=== PATIENT | male | born 1960 | race American Indian/Alaskan Native ===

== ENCOUNTER 2019-04-28 14:24 | Inpatient (IN) | payer BC ==
[2019-04-28 14:59] VITALS: BMI 25.0
--- NOTE | 2019-04-28 15:30 | C.PDOC ---
History Of Present Illness Patient is a 58 year old male who presents to the ED for evaluation of left foot ulcer after being sent in for failed outpatient therapy. Patient is reportedly on antibiotics from a podiatry outpatient. Time Seen by Provider: 04/28/19 15:27 Chief Complaint (Nursing): Abnormal Skin Integrity History Per: Patient History/Exam Limitations: no limitations Current Symptoms Are (Timing): Still Present Location Of Injury: Left: Foot (ulcer ) Recent travel outside of the [place]: No Additional History Per: Patient Past Medical History Reviewed: Historical Data, Nursing Documentation, Vital Signs Vital Signs: Last Vital Signs Temp 98.6 F 04/28/19 14:59 Pulse 71 04/28/19 14:59 Resp 16 04/28/19 14:59 BP 133/78 04/28/19 14:59 Pulse Ox 95 04/28/19 14:59 Primary Care Provider: Non [facility] Provider, - Medical History PMH: No Chronic Diseases Surgical History: No Surg Hx Family History: States: No Known Family Hx - Social History Hx Alcohol Use: Yes Hx Substance Use: No - Immunization History Hx Tetanus Toxoid Vaccination: No Hx Influenza Vaccination: No Hx Pneumococcal Vaccination: No Review Of Systems Except As Marked, All Systems Reviewed And Found Negative. Constitutional: Negative for: Fever, Chills Cardiovascular: Negative for: Chest Pain Respiratory: Negative for: Shortness of Breath Musculoskeletal: Positive for: Foot Pain (left foot ulcer) Physical Exam - Physical Exam Appears: Non-toxic, No Acute Distress Skin: Warm, Dry Head: Atraumatic, Normacephalic Oral Mucosa: Moist Neck: Normal ROM, Supple Chest: Symmetrical, No Deformity Cardiovascular: Rhythm Regular, No Murmur Respiratory: Normal Breath Sounds, No Rales, No Rhonchi, No Wheezing Extremity: Other (ulcer to first digit, purulent drainage ) Neurological/Psych: Oriented x3 ED Course And Treatment - Laboratory Results Result Diagrams: 04/28/19 16:55 04/28/19 16:55 O2 Sat by Pulse Oximetry: 95 (on RA) Pulse Ox Interpretation: Normal - Other Rad Xray Lft Foot X-Ray: Viewed By Me, Read By Radiologist Interpretation: Date of service: 04/28/2019. PROCEDURE: Left Foot Radiographs. HISTORY: foot ulcer. COMPARISON: None. TECHNIQUE: 3 views obtained. FINDINGS: BONES: Status post osteotomy in the distal 1st metatarsal and post osteotomy in the proximal phalanx of the great toe. There are metallic screws at the osteotomy site in the distal 1st metatarsal and a metallic wire in the proximal phalanx of the great toe. There are small metallic screws in the head of the 2nd and 3rd metatarsals. There are also postsurgical changes in the proximal phalanges of the 2nd and 3rd toes. Bone alignment is normal. There is an accessory ossifications center medial to the navicular. JOINTS: Severe degenerative osteoarthrosis in the 1st MTP joint. SOFT TISSUES: There is diffuse soft tissue swelling in the foot. OTHER FINDINGS: None. IMPRESSION: No radiographic evidence for osteomyelitis. Diffuse soft tissue swelling in the foot could represent cellulitis. Postsurgical changes as described above. Severe degenerative osteoarthrosis in the 1st MTP joint. Medical Decision Making Medical Decision Making: Plan: Labs Blood Culture Xray Lft Foot Cipro 400mg in 200ml IVPB Vancomycin 1gm in 200ml IVPB seen by podiatry bedside accepted dr kumari Disposition - Disposition Disposition: HOSPITALIZED Disposition Time: 17:34 Condition: STABLE Forms: [employer] (I[place]ic) - Clinical Impression Clinical Impression: Foot ulcer, Cellulitis - Scribe Statement The provider has reviewed the documentation as recorded by the Ramiroibrachael Gaines All medical record entries made by the Ramiroibrachael were at my direction and personally dictated by me. I have reviewed the chart and agree that the record accurately reflects my personal performance of the history, physical exam, medical decision making, and the department course for this patient. I have also personally directed, reviewed, and agree with the discharge instructions and disposition. Decision To Admit - Pt Status Changed To: Hospital Disposition Of: Inpatient - Admit Certification Admit to Inpatient:: After my assessment, the patient will require hospitalization for at least two midnights. This is because of the severity of symptoms shown, intensity of services needed, and/or the medical risk in this patient being treated as an outpatient. - InPatient: Physician Admission Certification: I certify that this patient requires 2 or more midnights of care for the following reason:: failed outpt - . Bed Request Type: Regular Admitting Physician: Patrick Kumari Jr. Patient Diagnosis: Foot ulcer, Cellulitis
[2019-04-28] MEDS ORDERED: Vancomycin 1 gm/NS 200 ml 1 GM/200 ML BAG IVPB STA (15:35)
[2019-04-28] MEDS ORDERED: Ciprofloxacin 400mg/200ml D5W 400 MG/200 ML BAG IVPB STA (15:35)
--- NOTE | 2019-04-28 16:08 | RAD ---
Date of service: 04/28/2019 PROCEDURE: Left Foot Radiographs. HISTORY: foot ulcer COMPARISON: None. TECHNIQUE: 3 views obtained. FINDINGS: BONES: Status post osteotomy in the distal 1st metatarsal and post osteotomy in the proximal phalanx of the great toe. There are metallic screws at the osteotomy site in the distal 1st metatarsal and a metallic wire in the proximal phalanx of the great toe. There are small metallic screws in the head of the 2nd and 3rd metatarsals. There are also postsurgical changes in the proximal phalanges of the 2nd and 3rd toes. Bone alignment is normal. There is an accessory ossifications center medial to the navicular. JOINTS: Severe degenerative osteoarthrosis in the 1st MTP joint. SOFT TISSUES: There is diffuse soft tissue swelling in the foot. OTHER FINDINGS: None. IMPRESSION: No radiographic evidence for osteomyelitis. Diffuse soft tissue swelling in the foot could represent cellulitis. Postsurgical changes as described above. Severe degenerative osteoarthrosis in the 1st MTP joint.
--- NOTE | 2019-04-28 17:05 | CP.PCM.CON ---
History of Present Illness - History of Present Illness History of Present Illness: Podiatry Consult Note- Dr. Santana 58 year old male seen and examined in the emergency room for left nonhealing wound with infection. Patient is known to Dr. Santana. Patient had a history of dislocated 2nd digit which fused and became painful. Patient also had progressively worsen bunion. Patient underwent surgical intervention of 2nd, 3rd metatarsal and bunion with screw fixations at [place] in March (~6 weeks prior). Patient reports that surgical incision to the 2nd and 3rd metatarsal healed however surgical incision to the bunionectomy did not heal. Reports that about 3 weeks ago, he dropped a hammer on top of this big toe a the location of the bunion surgical incision. He reports continued to follow up with Dr. Santana in which he continued to manage his wound. Patient reports he was given Augmentin which did not really help the wound. Wound culture was taken and showed Staph epidermis and was given Cipro to take. Patient was told to come to the ED for further workup of infection and to r/o bone infection. Patient denies nausea, fever, shortness of breath, diarrhea chest pains or chills. Patient reports no pain to the surgical incision. Reports no purulence or malodor. Reports increase warmth to the left foot. Reports has been ambulating in surgical shoe with dressing clean, dry and intact. PMH: denies PSH: left foot surgery ALL: denies FH: noncontributory SocH: denies smoking, drinking or illicit drug use Past Patient History - Past Social History Smoking Status: Never Smoked - PSYCHIATRIC Hx Substance Use: No - SURGICAL HISTORY Hx Surgeries: Yes Hx Musculoskeletal Surgery: (left foot.) - ANESTHESIA Hx Anesthesia: Yes Meds Allergies/Adverse Reactions: Allergies Allergy/AdvReac Type Severity Reaction Status Date / Time No Known Allergies Allergy Verified 04/28/19 14:58 Physical Exam - Constitutional Appears: Well, Non-toxic, No Acute Distress - Extremities Exam Extremities exam: Negative for: calf tenderness Additional comments: VASC: DP and PT 2/4 bilaterally, CFT < 3 seconds x 10 digits, temperature left warm to warm, right warm to cool, mild edema noted to the left foot ORTHO: MM is 5/5 in all four compartments, able to wiggle digits, no calf pain or tenderness, slightly weaken dorsiflexion of the hallux NEURO: gross and protective sensation intact DERM: healed surgical incision to 2nd and 3rd digit and open wound noted to the dorsum medial aspect of left foot measuring approximately 2 x 5 cm x .2 cm with wound base mixture of fibrotic and granular tissue, slight clear yellow synovial drainage, no streaking cellulitis noted, no hardware exposed, no probe to bone - Neurological Exam Neurological exam: Alert, Normal Gait - Psychiatric Exam Psychiatric exam: Normal Affect, Normal Mood Results - Vital Signs Recent Vital Signs: Last Vital Signs Temp 98.6 F 04/28/19 14:59 Pulse 71 04/28/19 14:59 Resp 16 04/28/19 14:59 BP 133/78 04/28/19 14:59 Pulse Ox 95 04/28/19 15:58 - Labs Result Diagrams: 04/28/19 16:55 04/28/19 16:55 Assessment & Plan - Assessment and Plan (Free Text) Assessment: 58 M with no PMH s/p 6 weeks left bunionectomy and 2nd and 3rd metatarsal osteotomy with internal fixation with nonhealing infected wound, r/o OM Plan: Patient seen and examined Discussed plan in detail with attending Dr. Santana X-rays reviewed F/U ESR, CRP, labs Wound culture taken of left foot wound- pending ID consulted- Dr. Abdul Patient is s/p 6 weeks surgical intervention Need to r/o OM, will discuss with Dr. Abdul on best modality to r/o OM Podiatry may bring patient to the OR pending more information for debridment of nonhealing wound vs removal of implant morning Will continue to follow patient while in house Patient may WBAT in surgical shoe
[2019-04-28 17:07] LABS: PARTIAL THROMBOPLASTIN TIME 28.5 SECONDS (21-34); PROTHROMBIN TIME 11.4 SECONDS (9.7-12.2)
[2019-04-28 17:10] LABS: BLOOD UREA NITROGEN 17 mg/dL (9-20); CALCIUM 9.4 mg/dl (8.6-10.4); GFR NON-AFRICAN AMERICAN > 60
[2019-04-28 17:12] LABS: ALB/GLOB RATIO 1.3 (1.0-2.1); ALBUMIN 4.7 g/dL (3.5-5.0); ALT/SGPT 13 U/L (21-72); AST/SGOT 52 U/L (17-59); BASO # 0.1 K/uL (0.0-0.2); EOS # 0.4 K/uL (0.0-0.7); HEMOGLOBIN 14.7 g/dL (12.0-18.0); LYMPH # 2.9 K/uL (1.0-4.3); LYMPH % 31.1 % (20.0-40.0); MEAN CELL VOLUME 74.4 fL (80.0-94.0); MEAN CORPUSCULAR HEMOGLOBIN 24.8 pg (27.0-31.0); MEAN CORPUSCULAR HGB CONC 33.3 g/dL (33.0-37.0); MEAN PLATELET VOLUME 9.7 fL (7.2-11.7); NEUT # 4.9 K/uL (1.8-7.0); NEUT % 52.9 % (50.0-75.0); NRBC % 1.3 % (0.0-2.0); RBC 5.93 Mil/uL (4.40-5.90); RED CELL DISTRIBUTION WIDTH 17.1 % (11.5-14.5); WHITE BLOOD COUNT 9.2 K/uL (4.8-10.8)
--- NOTE | 2019-04-28 17:19 | CP.PCM.HP ---
History of Present Illness - History of Present Illness History of Present Illness: PGY1 H and P for Dr. 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 As per pt and podiatry resident, patient had a history of dislocated 2nd digit which fused and became painful. Pt underwent surgical incision to the 2nd and 3rd metatarsal, which healed. But the bunionectomy incision did not heal. He reports continued to follow up with Dr. Santana in which he continued to manage his wound. Patient reports he was given Augmentin which did not really help the wound. Wound culture was taken in the office and showed Staph epidermis treated with Ciprofloxacin. Denies fever, chills, chest pain, sob, abdominal pain, numbness or tingling. Endorses pain on the left foot only when bearing weight, but has been ambulating in surgical shoe without assistive device. PMH: denies PSH: left foot surgery as above Meds: Ciprofloxacin Allx: NKDA SHx: Lives in . Single. Denies smoking history. Occasional EtOH use, daily marijuana use. Denies IV drug use or other illicit drug use. Present on Admission - Present on Admission Any Indicators Present on Admission: No Review of Systems - Review of Systems All systems: reviewed and no additional remarkable complaints except (as per HPI) Past Patient History - Past Social History Smoking Status: Never Smoked - PSYCHIATRIC Hx Substance Use: No - SURGICAL HISTORY Hx Surgeries: Yes Hx Musculoskeletal Surgery: (left foot.) - ANESTHESIA Hx Anesthesia: Yes Meds Allergies/Adverse Reactions: Allergies Allergy/AdvReac Type Severity Reaction Status Date / Time No Known Allergies Allergy Verified 04/28/19 14:58 Physical Exam - Constitutional Appears: Non-toxic, No Acute Distress - Head Exam Head Exam: ATRAUMATIC, NORMAL INSPECTION - Eye Exam Eye Exam: EOMI, Normal appearance - ENT Exam ENT Exam: Mucous Membranes Moist - Respiratory Exam Respiratory Exam: Clear to Auscultation Bilateral. absent: Decreased Breath Sounds, Rales, Rhonchi, Wheezes, Respiratory Distress, Stridor - Cardiovascular Exam Cardiovascular Exam: REGULAR RHYTHM, +S1, +S2. absent: Tachycardia, Diastolic murmur, Irregular Rhythm - GI/Abdominal Exam GI & Abdominal Exam: Normal Bowel Sounds, Soft. absent: Distended, Firm, Guarding, Rebound, Rigid, Tenderness - Extremities Exam Extremities exam: Positive for: normal capillary refill, normal inspection (left foot is covered with dressing by podiatry resident; c/d/i, nontender. no drainage noted), pedal pulses present. Negative for: calf tenderness, pedal edema, tenderness - Back Exam Back exam: NORMAL INSPECTION - Neurological Exam Neurological exam: Alert, Oriented x3 - Psychiatric Exam Psychiatric exam: Normal Affect, Normal Mood - Skin Skin Exam: Dry, Normal Color, Warm - Additional Findings Additional findings: Results - Vital Signs Recent Vital Signs: Last Vital Signs Temp 98.6 F 04/28/19 14:59 Pulse 71 04/28/19 14:59 Resp 16 04/28/19 14:59 BP 133/78 04/28/19 14:59 Pulse Ox 95 04/28/19 17:07 - Labs Result Diagrams: 04/28/19 16:55 04/28/19 16:55 Labs: Laboratory Results - last 24 hr 04/28/19 04/28/19 04/28/19 16:55 16:55 16:55 WBC 9.2 RBC 5.93 H Hgb 14.7 Hct 44.1 MCV 74.4 L MCH 24.8 L MCHC 33.3 RDW 17.1 H Plt Count 240 MPV 9.7 Neut % (Auto) 52.9 Lymph % (Auto) 31.1 [place] % (Auto) 11.0 H Eos % (Auto) 4.0 Baso % (Auto) 1.0 Neut # (Auto) 4.9 Lymph # (Auto) 2.9 [place] # (Auto) 1.0 H Eos # (Auto) 0.4 Baso # (Auto) 0.1 PT 11.4 INR 1.0 APTT 28.5 Sodium 137 Potassium 5.3 H Chloride 107 Carbon Dioxide 21 L Anion Gap 14 BUN 17 Creatinine 1.0 Est GFR ( Amer) > 60 Est GFR (Non-Af Amer) > 60 Random Glucose 93 Calcium 9.4 Total Bilirubin 1.2 AST 52 ALT 13 L Alkaline Phosphatase 49 Total Protein 8.4 H Albumin 4.7 Globulin 3.7 Albumin/Globulin Ratio 1.3 Assessment & Plan - Assessment and Plan (Free Text) Assessment: This is a 58 year old male with no significant PMH, who was sent to the ED by 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 Abdul, consulted. Podiatry Dr. Santana, consulted. Left foot XR shows no radiographic evidence of OM. Diffuse soft tissue swelling in the foot could represent cellulitis. Post surgical changes, severe degenerative osteoarthrosis in the 1st MTP joint Vancomycin 1g Q12, Ciprofloxacin 400 mg IVPB q12h F/u HgbA1c, lipid panel, Blood culture, wound culture, CRP, ESR, preop CXR and EKG PPx: No indication for GI ppx Heparin 5000 units SC q12 HHD Case discussed with Dr. Aron [place] PGY1
[2019-04-28] MEDS ORDERED: Ciprofloxacin 400mg/200ml D5W 400 MG/200 ML BAG IVPB ONE (17:22)
[2019-04-29] MEDS: Ciprofloxacin 400mg/200ml D5W 400 MG/200 ML BAG IVPB SCH ×2 (03:19→14:36)
--- NOTE | 2019-04-29 07:43 | CP.PCM.PN ---
<Toña Ndiaye - Last Filed: 04/29/19 17:09> Subjective - Date & Time of Evaluation Date of Evaluation: 04/29/19 Time of Evaluation: 07:40 - Subjective Subjective: Resident Progress Note for Dr. Sharp Patient examined at bedside. No acute events overnight. Patient reports some irritation of the left eye. States pain in foot is well controlled at this time. Denies fevers, chills, nausea, vomiting, abdominal pain, diarrhea, dysuria. Objective - Vital Signs/Intake and Output Vital Signs (last 24 hours): Temp Pulse Resp BP Pulse Ox 97.8 F 68 20 134/79 98 04/29/19 00:00 04/29/19 00:00 04/29/19 00:00 04/29/19 00:00 04/29/19 00:00 Intake and Output: 04/29/19 04/29/19 06:59 18:59 Intake Total 650 Balance 650 - Medications Medications: Current Medications Heparin Sodium (Porcine) (Heparin) 5,000 units SC Q12 THU Last Admin: 04/28/19 22:26 Dose: 5,000 units Ciprofloxacin (Cipro 400mg/200ml Dsw) 400 mg in 200 mls @ 133 mls/hr IVPB Q12H THU; Protocol Last Admin: 04/29/19 03:19 Dose: 133 mls/hr Vancomycin HCl 1,000 mg/ (Sodium Chloride) 250 mls @ 166.6 mls/hr IVPB Q12H THU; Protocol Last Admin: 04/29/19 06:07 Dose: 166.6 mls/hr Pneumococcal Polyvalent Vaccine (Pneumovax 23 Vaccine) 0.5 ml IM .ONCE ONE Stop: 04/30/19 10:01 - Labs Labs: 04/28/19 16:55 04/28/19 16:55 PT 11.4 SECONDS (9.7-12.2) 04/28/19 16:55 INR 1.0 04/28/19 16:55 APTT 28.5 SECONDS (21-34) 04/28/19 16:55 - Constitutional Appears: Non-toxic, No Acute Distress - Head Exam Head Exam: ATRAUMATIC, NORMAL INSPECTION - Eye Exam Eye Exam: EOMI Additional comments: mild injection of left eye - ENT Exam ENT Exam: Mucous Membranes Moist - Respiratory Exam Respiratory Exam: Clear to Auscultation Bilateral. absent: Wheezes, Respiratory Distress, Stridor - Cardiovascular Exam Cardiovascular Exam: REGULAR RHYTHM, +S1, +S2. absent: Tachycardia - GI/Abdominal Exam GI & Abdominal Exam: Normal Bowel Sounds, Soft. absent: Distended, Firm, Guarding - Extremities Exam Extremities exam: Positive for: normal capillary refill, pedal pulses present. 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 Diffuse soft tissue swelling in the foot could represent cellulitis. Post surgical changes, severe degenerative osteoarthrosis in the 1st MTP joint - Vancomycin 1g Q12, Ciprofloxacin 400 mg IVPB q12h - blood culture negx1 - Hgba1c 5.8 - lipid panel within normal limits - F/u wound culture, CRP, ESR PPX - No indication for GI ppx - Heparin 5000 units SC q12 Dispo: pending cultures, podiatry/ID recs Case reviewed with Dr. Aron Ndiaye PGY-1 <Patrick Sharp Jr. - Last Filed: 05/02/19 11:20> Objective - Vital Signs/Intake and Output Vital Signs (last 24 hours): Temp Pulse Resp BP Pulse Ox 98.0 F 52 L 20 124/74 96 05/02/19 08:00 05/02/19 08:00 05/02/19 08:00 05/02/19 08:00 05/02/19 08:00 Intake and Output: 05/02/19 05/02/19 06:59 18:59 Intake Total 120 Balance 120 - Medications Medications: Current Medications Acetaminophen (Tylenol 325mg Tab) 650 mg PO Q6 PRN PRN Reason: Pain, moderate (4-7) Heparin Sodium (Porcine) (Heparin) 5,000 units SC Q12 THU Last Admin: 05/01/19 09:42 Dose: 5,000 units Heparin Sodium (Porcine) (Heparin (For Dialysis)) 1,000 units IVP ONCE THU Heparin Sodium (Porcine) (Heparin (For Dialysis)) 1,000 units IV ONCE THU Piperacillin Sod/Tazobactam Sod (Zosyn 3.375 Gm Iv Premix) 3.375 gm in 50 mls @ 100 mls/hr IVPB Q6H THU; Protocol Last Admin: 05/02/19 05:28 Dose: 100 mls/hr Vancomycin/Sodium Chloride (Vancomycin 1 Gm/Ns 200 Ml) 1 gm in 200 mls @ 166.7 mls/hr IVPB Q12H THU; Protocol Stop: 05/05/19 10:01 Last Admin: 05/02/19 10:13 Dose: 166.7 mls/hr Tobramycin/Dexamethasone (Tobradex Opht Susp) 0 ml OU TID [facility] Last Admin: 05/02/19 09:35 Dose: 1 drop - Labs Labs: 05/02/19 06:47 05/02/19 06:47 PT 11.4 SECONDS (9.7-12.2) 04/28/19 16:55 INR 1.0 04/28/19 16:55 APTT 28.5 SECONDS (21-34) 04/28/19 16:55 Attending/Attestation - Attestation I have personally seen and examined this patient.: Yes I have fully participated in the care of the patient.: Yes I have reviewed all pertinent clinical information, including history, physical exam and plan: Yes Notes (Text): 05/02/19 11:20 Examined patient and reviewed residents note and plan of care. Agree with findings and plan.
--- NOTE | 2019-04-29 08:26 | CP.PCM.PN ---
Subjective - Date & Time of Evaluation Date of Evaluation: 04/29/19 Time of Evaluation: 08:18 - Subjective Subjective: Podiatry Consult Note- Dr. Santana 58 year old male seen and examined with attending Dr. Santana at bedside for left foot nonhealing wound with infection s/p 6 weeks surgery, r/o OM. Patient is seen resting comfortably in bed, in NAD, and AA0x3. Patient admits he should have told Dr. Santana earlier when he first dropped the hammertoe on the hallux valgus surgical site on his foot. He reports that he did not tell Dr. Santana until 2 weeks ago when he followed up in his office. Patient reports no pain currently. Reports stingy pain during dressing changes. Reports has been ambulating without issues to bed and bathroom. Denies nausea, fever, shortness of breath, chest pains or chills. Objective - Vital Signs/Intake and Output Vital Signs (last 24 hours): Temp Pulse Resp BP Pulse Ox 98.0 F 54 L 20 133/78 98 04/29/19 07:48 04/29/19 07:48 04/29/19 07:48 04/29/19 07:48 04/29/19 07:48 Intake and Output: 04/29/19 04/29/19 06:59 18:59 Intake Total 650 Balance 650 - Medications Medications: Current Medications Heparin Sodium (Porcine) (Heparin) 5,000 units SC Q12 THU Last Admin: 04/28/19 22:26 Dose: 5,000 units Ciprofloxacin (Cipro 400mg/200ml Dsw) 400 mg in 200 mls @ 133 mls/hr IVPB Q12H THU; Protocol Last Admin: 04/29/19 03:19 Dose: 133 mls/hr Vancomycin HCl 1,000 mg/ (Sodium Chloride) 250 mls @ 166.6 mls/hr IVPB Q12H THU; Protocol Last Admin: 04/29/19 06:07 Dose: 166.6 mls/hr Pneumococcal Polyvalent Vaccine (Pneumovax 23 Vaccine) 0.5 ml IM .ONCE ONE Stop: 04/30/19 10:01 - Labs Labs: 04/28/19 16:55 04/28/19 16:55 PT 11.4 SECONDS (9.7-12.2) 04/28/19 16:55 INR 1.0 04/28/19 16:55 APTT 28.5 SECONDS (21-34) 04/28/19 16:55 - Constitutional Appears: Well, Non-toxic, No Acute Distress - Extremities Exam Additional comments: VASC: DP and PT 2/4 bilaterally, CFT < 3 seconds x 10 digits, temperature left warm to warm, right warm to cool, mild edema noted to the left foot ORTHO: MM is 5/5 in all four compartments, able to wiggle digits, no calf pain or tenderness, slightly weaken dorsiflexion of the hallux NEURO: gross and protective sensation intact DERM: healed surgical incision to 2nd and 3rd digit and open wound noted to the dorsum medial aspect of left foot measuring approximately 2 x 5 cm x .2 cm with wound base mixture of fibrotic and granular tissue, slight clear yellow synovial drainage, no streaking cellulitis noted, no hardware exposed, no probe to bone - Neurological Exam Neurological Exam: Alert, Awake, Oriented x3 - Psychiatric Exam Psychiatric exam: Normal Affect, Normal Mood Assessment and Plan - Assessment and Plan (Free Text) Assessment: 58 M with no PMH s/p 6 weeks left bunionectomy and 2nd and 3rd metatarsal osteotomy with internal fixation with nonhealing infected wound, r/o OM Plan: Patient seen and examined Discussed plan in detail with attending Dr. Santana X-rays reviewed post surgical changes vs bony changes secondary to underlying infection F/U ESR, CRP, labs Wound culture taken of left foot wound- pending ID consulted- Dr. Abdul Patient is s/p 6 weeks surgical intervention Need to r/o OM, will discuss with Dr. Abdul on best modality to r/o OM Cleanse site with saline solution and dressed with xeroform, dsd, cling. Podiatry may bring patient to the OR pending more information for debridment of nonhealing wound vs more aggressive surgery this week Will continue to follow patient while in house Patient may WBAT in surgical shoe
[2019-04-29 08:56] LABS: HEMOGLOBIN 13.6 g/dL (12.0-18.0); MEAN CELL VOLUME 75.6 fL (80.0-94.0); MEAN CORPUSCULAR HEMOGLOBIN 24.5 pg (27.0-31.0); MEAN CORPUSCULAR HGB CONC 32.4 g/dL (33.0-37.0); MEAN PLATELET VOLUME 8.8 fL (7.2-11.7); RBC 5.56 Mil/uL (4.40-5.90)
[2019-04-29 09:10] LABS: ALB/GLOB RATIO 1.4 (1.0-2.1); ALBUMIN 3.8 g/dL (3.5-5.0); ALT/SGPT 30 U/L (21-72); AST/SGOT 26 U/L (17-59); BLOOD UREA NITROGEN 12 mg/dL (9-20); GFR NON-AFRICAN AMERICAN > 60; HDL CHOLESTEROL 70 mg/dL (30-70)
[2019-04-29 09:18] LABS: LDL CHOLESTEROL 94 mg/dL (0-129)
--- NOTE | 2019-04-29 11:18 | RAD ---
Chest x-ray two views HISTORY: Preoperative evaluation. Comparison: None. Findings: No focal infiltrate or effusion. Small nodular density at the left lung base may represent vessel on end. Heart size within normal limits. Impression: No focal infiltrate or effusion.
[2019-04-29 12:32] LABS: EOS # 0.2 K/uL (0.0-0.7); LYMPH # 2.6 K/uL (1.0-4.3); MONO # 0.6 K/uL (0.0-0.8); NEUT # 3.3 K/uL (1.8-7.0)
--- NOTE | 2019-04-29 16:52 | CP.PCM.CON ---
History of Present Illness - History of Present Illness History of Present Illness: examined on rounds non healing ulcer left great toe s/p bunion surgery hardware in place cultures sent ceretec scan to r/o om cont IV antibiotics Patient has a history of dislocated 2nd digit which fused and became painful as well as 1st digit bubion. Patient underwent surgical intervention of 2nd, 3rd metatarsal and bunion with screw fixations at [place] in March (~6 weeks prior). Patient reports that surgical incision to the 2nd and 3rd metatarsal healed however surgical incision to the bunionectomy did not heal. Reports that about 3 weeks ago, he dropped a hammer on top of this big toe a the location of the bunion surgical incision. He reports continued to follow up with Dr. Santana in which he continued to manage his wound. Patient reports he was given Augmentin which did not really help the wound. Wound culture was taken and showed Staph epidermis and was given Cipro to take. Patient was told to come to the ED for further workup of infection and to r/o bone infection. PMH: denies PSH: left foot surgery ALL: denies FH: noncontributory SocH: denies smoking, drinking or illicit drug use Review of Systems - Constitutional Constitutional: As Per HPI - EENT Eyes: absent: As Per HPI, Blind Spots, Blurred Vision, Change in Vision, Decreased Night Vision, Diplopia, Discharge, Dry Eye, Exophthalmos, Floaters, Irritation, Itchy Eyes, Loss of Peripheral Vision, Pain, Photophobia, Requires Corrective Lenses, Sees Flashes, Spots in Vision, Tunnel Vision, Other Visual Disturbances, Loss of Vision, Other Ears: absent: As Per HPI, Decreased Hearing, Ear Discharge, Ear Pain, Tinnitus, Abnormal Hearing, Disequilibrium, Dizziness, Other Nose/Mouth/Throat: absent: As Per HPI, Epistaxis, Nasal Congestion, Nasal Discharge, Nasal Obstruction, Nasal Trauma, Nose Pain, Post Nasal Drip, Sinus Pain, Sinus Pressure, Bleeding Gums, Change in Voice, Dental Pain, Dry Mouth, Dysphagia, Halitosis, Hoarsness, Lip Swelling, Mouth Lesions, Mouth Pain, Odynophagia, Sore Throat, Throat Swelling, Tongue Swelling, Facial Pain, Neck Pain, Neck Mass, Other - Cardiovascular Cardiovascular: absent: As Per HPI, Acrocyanosis, Chest Pain, Chest Pain at Rest, Chest Pain with Activity, Claudication, Diaphoresis, Dyspnea, Dyspnea on Exertion, Edema, Irregular Heart Rhythm, Pain Radiating to Arm/Neck/Jaw, Leg Edema, Leg Ulcers, Lightheadedness, Orthopnea, Palpitations, Paroxysmal Nocturnal Dyspnea, Pedal Edema, Radiating Pain, Rapid Heart Rate, Slow Heart Rate, Syncope, Other - Respiratory Respiratory: absent: As Per HPI, Cough, Dyspnea, Hemoptysis, Dyspnea on Exertion, Wheezing, Snoring, Stridor, Pain on Inspiration, Chest Congestion, Excessive Mucous Production, Change in Mucous Color, Pain with Coughing, Other - Gastrointestinal Gastrointestinal: absent: As Per HPI, Abdominal Pain, Belching, Bloating, Change in Bowel Habits, Change in Stool Character, Coffee Ground Emesis, Constipation, Cramping, Diarrhea, Dyspepsia, Dysphagia, Early Satiety, Excessive Flatus, Fecal Incontinence, Heartburn, Hematemesis, Hematochezia, Loose Stools, Melena, N ausea, Odynophagia, Temesmus, Vomiting, Other - Genitourinary Genitourinary: absent: As Per HPI, Change in Urinary Stream, Difficulty Urinating, Dysuria, Flank Pain, Hematuria, Pyuria, Nocturia, Urinary Incontinence, Urinary Frequency, Urinary Hesitance, Urinary Urgency, Voiding Freq/Small Amts, Freq UTI, Hx Renal/Bladder Calculi, Hx /Renal Surgery, Bladder Distension, Other - Musculoskeletal Musculoskeletal: As Per HPI - Integumentary Integumentary: As Per HPI, Skin Pain, Wounds - Neurological Neurological: absent: As Per HPI, Abnormal Gait, Abnormal Hearing, Abnormal Movements, Abnormal Speech, Behavioral Changes, Burning Sensations, Confusion, Convulsions, Disequilibrium, Dizziness, Numbness, Focal Weakness, Frequent Falls, Headaches, Lack of Coordination, Loss of Vision, Memory Loss, Paresthesias, Radicular Pain, Restless Legs, Sensory Deficit, Syncope, Tingling, Tremor, Vertigo, Weakness, Other Visual Disturbances, Other - Psychiatric Psychiatric: absent: As Per HPI, Abnormal Sleep Pattern, Anhedonia, Anxiety, Auditory Hallucinations, Behavioral Changes, Change in Appetite, Change in Libido, Confusion, Depression, Difficulty Concentrating, Hallucinations, Homicidal Ideation, Hopelessness, Irritability, Memory Loss, Mood Swings, Panic Attacks, Paranoia, Suicidal Ideation, Visual Hallucinations, Tactile Hallucinations, Other - Endocrine Endocrine: absent: As Per HPI, Change in Body Appearance, Change in Libido, Cold Intolorance, Deepening of Voice, Excessive Sweating, Fatigue, Flushing, Heat Intolorance, Increase in Ring/Shoe/Hat Size, Palpitations, Polydipsia, Polyphagia, Polyuria, Other - Hematologic/Lymphatic Hematologic: absent: As Per HPI, Easy Bleeding, Easy Bruising, Lymphadenopathy, Other Past Patient History - Past Medical History & Family History Past Medical History?: Yes - Past Social History Smoking Status: Never Smoked - MUSCULOSKELETAL/RHEUMATOLOGICAL Hx Falls: No - PSYCHIATRIC Hx Substance Use: No - SURGICAL HISTORY Hx Surgeries: Yes Hx Musculoskeletal Surgery: (left foot.) - ANESTHESIA Hx Anesthesia: Yes Meds Allergies/Adverse Reactions: Allergies Allergy/AdvReac Type Severity Reaction Status Date / Time No Known Allergies Allergy Verified 04/28/19 14:58 - Medications Medications: Current Medications Heparin Sodium (Porcine) (Heparin) 5,000 units SC Q12 [facility] Last Admin: 04/29/19 09:54 Dose: 5,000 units Ciprofloxacin (Cipro 400mg/200ml Dsw) 400 mg in 200 mls @ 133 mls/hr IVPB Q12H THU; Protocol Last Admin: 04/29/19 14:36 Dose: 133 mls/hr Pneumococcal Polyvalent Vaccine (Pneumovax 23 Vaccine) 0.5 ml IM .ONCE ONE Stop: 04/30/19 10:01 Physical Exam - Constitutional Appears: Non-toxic, Chronically Ill - Head Exam Head Exam: ATRAUMATIC, NORMAL INSPECTION, NORMOCEPHALIC - Eye Exam Eye Exam: EOMI, Normal appearance, PERRL Pupil Exam: NORMAL ACCOMODATION, PERRL - ENT Exam ENT Exam: Mucous Membranes Moist, Normal Exam - Neck Exam Neck exam: Positive for: Normal Inspection - Respiratory Exam Respiratory Exam: Clear to Auscultation Bilateral, NORMAL BREATHING PATTERN - Cardiovascular Exam Cardiovascular Exam: REGULAR RHYTHM - GI/Abdominal Exam GI & Abdominal Exam: Normal Bowel Sounds, Soft. absent: Tenderness - Rectal Exam Rectal Exam: Deferred - Exam Exam: NORMAL INSPECTION - Extremities Exam Extremities exam: Positive for: normal inspection - Back Exam Back exam: NORMAL INSPECTION - Neurological Exam Neurological exam: Alert, CN II-XII Intact, Normal Gait, Oriented x3, Reflexes Normal - Psychiatric Exam Psychiatric exam: Normal Affect, Normal Mood - Skin Skin Exam: Dry Additional comments: 5-6 cm serpiginous ulcer with minimal purulence on dorsum of left great toe which appears somewhat superficial Results - Vital Signs Recent Vital Signs: Last Vital Signs Temp 98.2 F 04/29/19 15:00 Pulse 58 L 04/29/19 15:00 Resp 20 04/29/19 15:00 BP 152/86 H 04/29/19 15:00 Pulse Ox 98 04/29/19 15:00 - Labs Result Diagrams: 04/29/19 08:37 04/29/19 08:37 Labs: Laboratory Results - last 24 hr 04/28/19 04/28/19 04/28/19 16:55 16:55 16:55 WBC 9.2 RBC 5.93 H Hgb 14.7 Hct 44.1 MCV 74.4 L MCH 24.8 L MCHC 33.3 RDW 17.1 H Plt Count 240 MPV 9.7 Neut % (Auto) 52.9 Lymph % (Auto) 31.1 [place] % (Auto) 11.0 H Eos % (Auto) 4.0 Baso % (Auto) 1.0 Neut # (Auto) 4.9 Lymph # (Auto) 2.9 [place] # (Auto) 1.0 H Eos # (Auto) 0.4 Baso # (Auto) 0.1 ESR PT 11.4 INR 1.0 APTT 28.5 Sodium 137 Potassium 5.3 H Chloride 107 Carbon Dioxide 21 L Anion Gap 14 BUN 17 Creatinine 1.0 Est GFR ( Amer) > 60 Est GFR (Non-Af Amer) > 60 Random Glucose 93 Hemoglobin A1c Calcium 9.4 Phosphorus Magnesium Total Bilirubin 1.2 AST 52 ALT 13 L Alkaline Phosphatase 49 C-Reactive Protein Total Protein 8.4 H Albumin 4.7 Globulin 3.7 Albumin/Globulin Ratio 1.3 Triglycerides Cholesterol LDL Cholesterol Direct HDL Cholesterol 04/29/19 04/29/19 04/29/19 08:37 08:37 08:37 WBC 7.0 RBC 5.56 Hgb 13.6 Hct 42.1 MCV 75.6 L MCH 24.5 L MCHC 32.4 L RDW 17.0 H Plt Count 287 MPV 8.8 Neut % (Auto) 49.0 L Lymph % (Auto) 39.0 [place] % (Auto) 9.0 Eos % (Auto) 3.0 Baso % (Auto) 0.0 Neut # (Auto) 3.3 Lymph # (Auto) 2.6 [place] # (Auto) 0.6 Eos # (Auto) 0.2 Baso # (Auto) 0.0 ESR 2 PT INR APTT Sodium 137 Potassium 4.1 Chloride 107 Carbon Dioxide 23 Anion Gap 11 BUN 12 Creatinine 0.9 Est GFR ( Amer) > 60 Est GFR (Non-Af Amer) > 60 Random Glucose 137 H D Hemoglobin A1c 5.8 Calcium 9.0 Phosphorus 3.3 Magnesium 2.0 Total Bilirubin 0.5 AST 26 ALT 30 Alkaline Phosphatase 55 C-Reactive Protein 5.80 Total Protein 6.5 Albumin 3.8 Globulin 2.7 Albumin/Globulin Ratio 1.4 Triglycerides 110 Cholesterol 191 LDL Cholesterol Direct 94 HDL Cholesterol 70 Assessment & Plan (1) Cellulitis Status: Acute (2) Foot ulcer Status: Acute - Assessment and Plan (Free Text) Assessment: non healing wound s/p bunionectomy in a previously healthy male r/o OM to explain delayed healing / infection recc: Ceretec scan Check cultures IV antibiotics switch to Zosyn for antipseudomonal coverage as well as anaerobic coverage cont Vanco for MRSA and MRSE
[2019-04-29 17:42] LABS: URINE BILIRUBIN NEGATIVE (NEGATIVE); URINE CLARITY Clear (Clear); URINE COLOR Straw (YELLOW); URINE GLUCOSE (UA) NORMAL (Normal); URINE LEUKOCYTE ESTERASE NEG Leu/uL (Negative); URINE PROTEIN NEGATIVE (NEGATIVE); URINE UROBILINOGEN NORMAL mg/dL (0.2-1.0)
[2019-04-29 17:58] LABS: URINE BLOOD TRACE (NEGATIVE)
[2019-04-29] MEDS: Piperacill/Tazo 3.375gm in Dex 3.375 GM/50 ML BAG IVPB SCH (23:23)
[2019-04-30] MEDS: Piperacill/Tazo 3.375gm in Dex 3.375 GM/50 ML BAG IVPB SCH ×5 (04:27→22:47)
--- NOTE | 2019-04-30 07:34 | CP.PCM.PN ---
Subjective - Date & Time of Evaluation Date of Evaluation: 04/30/19 Time of Evaluation: 07:29 - Subjective Subjective: Podiatry Progress Note- Dr. Santana 58 year old male seen and examined with attending Dr. Santana at bedside for left foot nonhealing wound with infection s/p 6 weeks surgery, r/o OM. Patient seen resting comfortably in bed, in NAD. Patient denies acute overnight events. Denies N/V/SOB/CP/Chills or F. Reports no issues with ambulating. Objective - Vital Signs/Intake and Output Vital Signs (last 24 hours): Temp Pulse Resp BP Pulse Ox 98.7 F 57 L 20 155/81 H 98 04/30/19 00:00 04/30/19 00:00 04/30/19 00:00 04/30/19 00:00 04/30/19 00:00 Intake and Output: 04/30/19 04/30/19 06:59 18:59 Intake Total 1100 Balance 1100 - Medications Medications: Current Medications Heparin Sodium (Porcine) (Heparin) 5,000 units SC Q12 [facility] Last Admin: 04/29/19 21:45 Dose: 5,000 units Piperacillin Sod/Tazobactam Sod (Zosyn 3.375 Gm Iv Premix) 3.375 gm in 50 mls @ 100 mls/hr IVPB Q6H [facility]; Protocol Last Admin: 04/30/19 04:27 Dose: 100 mls/hr Pneumococcal Polyvalent Vaccine (Pneumovax 23 Vaccine) 0.5 ml IM .ONCE ONE Stop: 04/30/19 10:01 - Labs Labs: 04/29/19 08:37 04/29/19 08:37 PT 11.4 SECONDS (9.7-12.2) 04/28/19 16:55 INR 1.0 04/28/19 16:55 APTT 28.5 SECONDS (21-34) 04/28/19 16:55 - Constitutional Appears: Well, Non-toxic, No Acute Distress - Extremities Exam Extremities Exam: absent: Calf Tenderness Additional comments: VASC: DP and PT 2/4 bilaterally, CFT < 3 seconds x 10 digits, temperature left warm to warm, right warm to cool, mild edema noted to the left foot ORTHO: MM is 5/5 in all four compartments, able to wiggle digits, no calf pain or tenderness, slightly weaken dorsiflexion of the hallux NEURO: gross and protective sensation intact DERM: healed surgical incision to 2nd and 3rd digit and open wound noted to the dorsum medial aspect of left foot measuring approximately 2 x 5 cm x .2 cm with wound base mixture of fibrotic and granular tissue, slight clear yellow synovial drainage, no streaking cellulitis noted, no hardware exposed, no probe to bone - Neurological Exam Neurological Exam: Alert, Awake, Oriented x3 - Psychiatric Exam Psychiatric exam: Normal Affect, Normal Mood Assessment and Plan - Assessment and Plan (Free Text) Assessment: 58 M with no PMH s/p 6 weeks left bunionectomy and 2nd and 3rd metatarsal osteotomy with internal fixation with nonhealing infected wound, r/o OM Plan: Patient seen and examined Discussed plan in detail with attending Dr. Santana X-rays reviewed post surgical changes vs bony changes secondary to underlying infection ESR 2 CRP 5.80 Wound culture taken of left foot wound- pending ID consulted- Dr. Abdul Patient is s/p 6 weeks surgical intervention Discussed with Dr. Abdul, [facility] scan ordered to r/o OM Cleanse site with saline solution and dressed with xeroform, dsd, cling. Podiatry may bring patient to the OR pending more information for debridment of nonhealing wound vs more aggressive surgery this week Please provide medical optimization. Thank you Will continue to follow patient while in house Patient may WBAT in surgical shoe
[2019-04-30 08:12] LABS: BASO # 0.1 K/uL (0.0-0.2); BASO % 1.7 % (0.0-2.0); EOS # 0.4 K/uL (0.0-0.7); EOS % 6.3 % (0.0-4.0); HEMOGLOBIN 14.1 g/dL (12.0-18.0); LYMPH # 2.2 K/uL (1.0-4.3); LYMPH % 35.5 % (20.0-40.0); MEAN CELL VOLUME 74.8 fL (80.0-94.0); MEAN CORPUSCULAR HEMOGLOBIN 24.8 pg (27.0-31.0); MEAN CORPUSCULAR HGB CONC 33.1 g/dL (33.0-37.0); MONO # 0.8 K/uL (0.0-0.8); MONO % 13.6 % (0.0-10.0); NEUT # 2.6 K/uL (1.8-7.0); NEUT % 42.9 % (50.0-75.0); NRBC % 0.1 % (0.0-2.0); RBC 5.69 Mil/uL (4.40-5.90); RED CELL DISTRIBUTION WIDTH 16.9 % (11.5-14.5); WHITE BLOOD COUNT 6.1 K/uL (4.8-10.8)
[2019-04-30 08:30] LABS: ALB/GLOB RATIO 1.5 (1.0-2.1); ALBUMIN 4.2 g/dL (3.5-5.0); ALT/SGPT 18 U/L (21-72); AST/SGOT 36 U/L (17-59); BLOOD UREA NITROGEN 11 mg/dL (9-20); GFR NON-AFRICAN AMERICAN > 60
--- NOTE | 2019-04-30 09:07 | CP.PCM.PN ---
<Yolanda Kyle P - Last Filed: 04/30/19 15:10> Subjective - Date & Time of Evaluation Date of Evaluation: 04/30/19 Time of Evaluation: 07:30 - Subjective Subjective: Progress note for Dr. Sharp. Patient S&E. States he feels well. Had a headache overnight that has since resolved with tylenol. Denies fever, chill, nause,a vomiting, pain. Objective - Vital Signs/Intake and Output Vital Signs (last 24 hours): Temp Pulse Resp BP Pulse Ox 97.6 F 44 L 20 149/86 98 04/30/19 08:12 04/30/19 08:12 04/30/19 08:12 04/30/19 08:12 04/30/19 08:12 Intake and Output: 04/30/19 04/30/19 06:59 18:59 Intake Total 1100 Balance 1100 - Medications Medications: Current Medications Heparin Sodium (Porcine) (Heparin) 5,000 units SC Q12 [facility] Last Admin: 04/29/19 21:45 Dose: 5,000 units Piperacillin Sod/Tazobactam Sod (Zosyn 3.375 Gm Iv Premix) 3.375 gm in 50 mls @ 100 mls/hr IVPB Q6H [facility]; Protocol Last Admin: 04/30/19 04:27 Dose: 100 mls/hr Pneumococcal Polyvalent Vaccine (Pneumovax 23 Vaccine) 0.5 ml IM .ONCE ONE Stop: 04/30/19 10:01 - Labs Labs: 04/30/19 08:02 04/30/19 08:02 PT 11.4 SECONDS (9.7-12.2) 04/28/19 16:55 INR 1.0 04/28/19 16:55 APTT 28.5 SECONDS (21-34) 04/28/19 16:55 - Constitutional Appears: Well, No Acute Distress - Head Exam Head Exam: ATRAUMATIC, NORMOCEPHALIC - Eye Exam Eye Exam: EOMI, Normal appearance - ENT Exam ENT Exam: Mucous Membranes Moist - Neck Exam Neck Exam: Full ROM, Normal Inspection - Respiratory Exam Respiratory Exam: Clear to Ausculation Bilateral, NORMAL BREATHING PATTERN. absent: Rales, Rhonchi, Wheezes - Cardiovascular Exam Cardiovascular Exam: REGULAR RHYTHM, +S1, +S2 - GI/Abdominal Exam GI & Abdominal Exam: Soft, Normal Bowel Sounds. absent: Distended, Firm, Guarding, Rigid, Tenderness - Extremities Exam Extremities Exam: Full ROM. absent: Pedal Edema, Tenderness Additional comments: L foot dressing c/d/i. Left toes normal cap refill, sensation intact, warm. - Neurological Exam Neurological Exam: Alert, Awake, Oriented x3 Neuro motor strength exam: Left Upper Extremity: 5, Right Upper Extremity: 5, Left Lower Extremity: 5, Right Lower Extremity: 5 - Psychiatric Exam Psychiatric exam: Normal Affect, Normal Mood - Skin Skin Exam: Dry, Normal Color, Warm Assessment and Plan - Assessment and Plan (Free Text) Plan: This is a 58 year old male with no significant PMH, who was sent to the ED by his pot builder due to nonhealing ulcer s/p foot surgery at [place] approximately 6 weeks ago Nonhealing ulcer left lower extremity - Left foot XR shows no radiographic evidence of OM. Diffuse soft tissue swelling in the foot could represent cellulitis. 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 Ceretic scan to R/o OM. Possible OR with podiatry pending results. Case reviewed with Dr. Aron Kyle, PGY-1 <Patrick Sharp Jr. - Last Filed: 05/02/19 11:18> Objective - Vital Signs/Intake and Output Vital Signs (last 24 hours): Temp Pulse Resp BP Pulse Ox 98.0 F 52 L 20 124/74 96 05/02/19 08:00 05/02/19 08:00 05/02/19 08:00 05/02/19 08:00 05/02/19 08:00 Intake and Output: 05/02/19 05/02/19 06:59 18:59 Intake Total 120 Balance 120 - Medications Medications: Current Medications Acetaminophen (Tylenol 325mg Tab) 650 mg PO Q6 PRN PRN Reason: Pain, moderate (4-7) Heparin Sodium (Porcine) (Heparin) 5,000 units SC Q12 [facility] Last Admin: 05/01/19 09:42 Dose: 5,000 units Heparin Sodium (Porcine) (Heparin (For Dialysis)) 1,000 units IVP ONCE [facility]U Heparin Sodium (Porcine) (Heparin (For Dialysis)) 1,000 units IV ONCE [facility]U Piperacillin Sod/Tazobactam Sod (Zosyn 3.375 Gm Iv Premix) 3.375 gm in 50 mls @ 100 mls/hr IVPB Q6H [facility]; Protocol Last Admin: 05/02/19 05:28 Dose: 100 mls/hr Vancomycin/Sodium Chloride (Vancomycin 1 Gm/Ns 200 Ml) 1 gm in 200 mls @ 166.7 mls/hr IVPB Q12H [facility]; Protocol Stop: 05/05/19 10:01 Last Admin: 05/02/19 10:13 Dose: 166.7 mls/hr Tobramycin/Dexamethasone (Tobradex Opht Susp) 0 ml OU TID [facility] Last Admin: 05/02/19 09:35 Dose: 1 drop - Labs Labs: 05/02/19 06:47 05/02/19 06:47 PT 11.4 SECONDS (9.7-12.2) 04/28/19 16:55 INR 1.0 04/28/19 16:55 APTT 28.5 SECONDS (21-34) 04/28/19 16:55 Attending/Attestation - Attestation I have personally seen and examined this patient.: Yes I have fully participated in the care of the patient.: Yes I have reviewed all pertinent clinical information, including history, physical exam and plan: Yes Notes (Text): 05/02/19 11:18 Examined patient and reviewed residents note and plan of care. Agree with findings and plan.
[2019-04-30] MEDS ORDERED: Pneumococcal 23-Valent Vaccine IM ONE (10:00)
[2019-04-30] MEDS: Vancomycin 1 gm/NS 200 ml 1 GM/200 ML BAG IVPB SCH ×2 (10:40→21:16)
--- NOTE | 2019-04-30 17:57 | CP.PCM.PN ---
Subjective - Date & Time of Evaluation Date of Evaluation: 04/30/19 Time of Evaluation: 07:00 - Subjective Subjective: c/o drainage / redness left eyr left foot wound same no fever Objective - Vital Signs/Intake and Output Vital Signs (last 24 hours): Temp Pulse Resp BP Pulse Ox 99.2 F 50 L 20 126/72 97 04/30/19 15:00 04/30/19 15:00 04/30/19 15:00 04/30/19 15:00 04/30/19 15:00 Intake and Output: 04/30/19 04/30/19 06:59 18:59 Intake Total 1100 600 Balance 1100 600 - Medications Medications: Current Medications Acetaminophen (Tylenol 325mg Tab) 650 mg PO Q6 PRN PRN Reason: Pain, moderate (4-7) Heparin Sodium (Porcine) (Heparin) 5,000 units SC Q12 [facility] Last Admin: 04/30/19 10:40 Dose: 5,000 units Heparin Sodium (Porcine) (Heparin (For Dialysis)) 1,000 units IVP ONCE [facility]U Piperacillin Sod/Tazobactam Sod (Zosyn 3.375 Gm Iv Premix) 3.375 gm in 50 mls @ 100 mls/hr IVPB Q6H [facility]; Protocol Last Admin: 04/30/19 16:55 Dose: 100 mls/hr Vancomycin/Sodium Chloride (Vancomycin 1 Gm/Ns 200 Ml) 1 gm in 200 mls @ 166.7 mls/hr IVPB Q12H [facility]; Protocol Stop: 05/05/19 10:01 Last Admin: 04/30/19 10:40 Dose: 166.7 mls/hr - Labs Labs: 04/30/19 08:02 04/30/19 08:02 PT 11.4 SECONDS (9.7-12.2) 04/28/19 16:55 INR 1.0 04/28/19 16:55 APTT 28.5 SECONDS (21-34) 04/28/19 16:55 - Constitutional Appears: Well, Non-toxic, Chronically Ill - Head Exam Head Exam: ATRAUMATIC, NORMAL INSPECTION, NORMOCEPHALIC - Eye Exam Eye Exam: Conjunctival injection, EOMI, Normal appearance, PERRL Pupil Exam: NORMAL ACCOMODATION, PERRL - ENT Exam ENT Exam: Mucous Membranes Moist, Normal Exam - Neck Exam Neck Exam: Full ROM, Normal Inspection. absent: Lymphadenopathy - Respiratory Exam Respiratory Exam: Clear to Ausculation Bilateral, NORMAL BREATHING PATTERN - Cardiovascular Exam Cardiovascular Exam: REGULAR RHYTHM, +S1, +S2. absent: Murmur - GI/Abdominal Exam GI & Abdominal Exam: Soft, Normal Bowel Sounds. absent: Tenderness - Rectal Exam Rectal Exam: Deferred - Exam Exam: NORMAL INSPECTION - Extremities Exam Extremities Exam: Full ROM, Normal Capillary Refill, Normal Inspection. absent: Joint Swelling, Pedal Edema - Back Exam Back Exam: NORMAL INSPECTION - Neurological Exam Neurological Exam: Alert, Awake, CN II-XII Intact, Oriented x3. absent: Normal Gait - Psychiatric Exam Psychiatric exam: Normal Affect, Normal Mood - Skin Skin Exam: Dry, Intact, Normal Color, Warm Additional comments: ulcer same Assessment and Plan (1) Cellulitis Status: Acute (2) Foot ulcer Status: Acute - Assessment and Plan (Free Text) Assessment: non healing ulcer left foot s/p bunion surgery left first digit MRI/Bone scan could not be done may need empiric rx prognosis guarded discussed with patient- may need empiric rx
[2019-04-30] MEDS ORDERED: HYDROCORT OP SCH (18:00)
[2019-04-30] MEDS ORDERED: POLYMYXIN OP SCH (18:00)
[2019-04-30] MEDS ORDERED: NEOMYCIN OP SCH (18:00)
[2019-04-30] MEDS ORDERED: Neomy-Polymyx-Dexameth Ophth Susp (5 ml) OU SCH (18:30)
[2019-04-30] MEDS: Tobramycin/Dexamethasone (Tobradex) Opth Sol (2.5 ml) OU SCH (21:55)
[2019-05-01] MEDS: Piperacill/Tazo 3.375gm in Dex 3.375 GM/50 ML BAG IVPB SCH ×4 (04:47→23:55)
[2019-05-01] MEDS ORDERED: Polymyxin/Trimethoprim Ophth Soln OS SCH (08:45)
--- NOTE | 2019-05-01 09:07 | CP.PCM.PN ---
<Yolanda Kyle P - Last Filed: 05/01/19 12:28> Subjective - Date & Time of Evaluation Date of Evaluation: 05/01/19 Time of Evaluation: 07:00 - Subjective Subjective: Progress note for Dr. Sharp. Patient S&E. States he feels well. Reports left eye redness and discomfort. Part one of ceretic scan unable to be done yesterday, as there was an issue with cells from blood. Will attempt again today. Denies fever, chills, nausea, vomiting, foot pain, eye discharge. Objective - Vital Signs/Intake and Output Vital Signs (last 24 hours): Temp Pulse Resp BP Pulse Ox 98.1 F 77 20 147/88 96 05/01/19 08:39 05/01/19 08:39 05/01/19 08:39 05/01/19 08:39 05/01/19 08:39 Intake and Output: 05/01/19 05/01/19 06:59 18:59 Intake Total 1200 Balance 1200 - Medications Medications: Current Medications Acetaminophen (Tylenol 325mg Tab) 650 mg PO Q6 PRN PRN Reason: Pain, moderate (4-7) Heparin Sodium (Porcine) (Heparin) 5,000 units SC Q12 THU Last Admin: 04/30/19 21:17 Dose: 5,000 units Heparin Sodium (Porcine) (Heparin (For Dialysis)) 1,000 units IVP ONCE THU Heparin Sodium (Porcine) (Heparin (For Dialysis)) 1,000 units IV ONCE THU Piperacillin Sod/Tazobactam Sod (Zosyn 3.375 Gm Iv Premix) 3.375 gm in 50 mls @ 100 mls/hr IVPB Q6H THU; Protocol Last Admin: 05/01/19 04:47 Dose: 100 mls/hr Vancomycin/Sodium Chloride (Vancomycin 1 Gm/Ns 200 Ml) 1 gm in 200 mls @ 166.7 mls/hr IVPB Q12H THU; Protocol Stop: 05/05/19 10:01 Last Admin: 04/30/19 21:16 Dose: 166.7 mls/hr Tobramycin/Dexamethasone (Tobradex Opht Susp) 0 ml OU TID THU Last Admin: 04/30/19 21:55 Dose: 1 drop - Labs Labs: 04/30/19 08:02 04/30/19 08:02 PT 11.4 SECONDS (9.7-12.2) 04/28/19 16:55 INR 1.0 04/28/19 16:55 APTT 28.5 SECONDS (21-34) 04/28/19 16:55 - Additional Findings Additional findings: - Constitutional Appears: Well, No Acute Distress - Head Exam Head Exam: ATRAUMATIC, NORMOCEPHALIC - Eye Exam Eye Exam: EOMI, mild conjuctival injection on the L - ENT Exam ENT Exam: Mucous Membranes Moist - Neck Exam Neck Exam: Full ROM, Normal Inspection - Respiratory Exam Respiratory Exam: Clear to Ausculation Bilateral, NORMAL BREATHING PATTERN. absent: Rales, Rhonchi, Wheezes - Cardiovascular Exam Cardiovascular Exam: REGULAR RHYTHM, +S1, +S2 - GI/Abdominal Exam GI & Abdominal Exam: Soft, Normal Bowel Sounds. absent: Distended, Firm, Guarding, Rigid, Tenderness - Extremities Exam Extremities Exam: Full ROM. absent: Pedal Edema, Tenderness Additional comments: L foot dressing c/d/i. Left toes normal cap refill, sensation intact, warm. - Neurological Exam Neurological Exam: Alert, Awake, Oriented x3 Neuro motor strength exam: Left Upper Extremity: 5, Right Upper Extremity: 5, Left Lower Extremity: 5, Right Lower Extremity: 5 - Psychiatric Exam Psychiatric exam: Normal Affect, Normal Mood - Skin Skin Exam: Dry, Normal Color, Warm Assessment and Plan - Assessment and Plan (Free Text) Plan: This is a 58 year old male with no significant PMH, who was sent to the ED by his washer cutter due to nonhealing ulcer s/p foot surgery at [place] approximately 6 weeks ago Nonhealing ulcer left lower extremity - Left foot XR shows no radiographic evidence of OM. Diffuse soft tissue swelling in the foot could represent cellulitis. 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 F/u Vanco trough at 20:30 . Ceretic scan to be attempted today again. To be taken to OR by podiatry for wound debridement. Revised cardiac risk index Class 1: 3.9% 30 day risk of , [place] or cardiac a rrest. Patient is low risk for cardiac event under anesthesia. Patient is medically optimized for surgery. Surgical team and anesthesia team to discuss risks and benefits of surgery. Case reviewed with Dr. Aron Kyle, PGY-1 <Patrick Sharp Jr. - Last Filed: 05/02/19 11:17> Objective - Vital Signs/Intake and Output Vital Signs (last 24 hours): Temp Pulse Resp BP Pulse Ox 98.0 F 52 L 20 124/74 96 05/02/19 08:00 05/02/19 08:00 05/02/19 08:00 05/02/19 08:00 05/02/19 08:00 Intake and Output: 05/02/19 05/02/19 06:59 18:59 Intake Total 120 Balance 120 - Medications Medications: Current Medications Acetaminophen (Tylenol 325mg Tab) 650 mg PO Q6 PRN PRN Reason: Pain, moderate (4-7) Heparin Sodium (Porcine) (Heparin) 5,000 units SC Q12 THU Last Admin: 05/01/19 09:42 Dose: 5,000 units Heparin Sodium (Porcine) (Heparin (For Dialysis)) 1,000 units IVP ONCE THU Heparin Sodium (Porcine) (Heparin (For Dialysis)) 1,000 units IV ONCE THU Piperacillin Sod/Tazobactam Sod (Zosyn 3.375 Gm Iv Premix) 3.375 gm in 50 mls @ 100 mls/hr IVPB Q6H THU; Protocol Last Admin: 05/02/19 05:28 Dose: 100 mls/hr Vancomycin/Sodium Chloride (Vancomycin 1 Gm/Ns 200 Ml) 1 gm in 200 mls @ 166.7 mls/hr IVPB Q12H THU; Protocol Stop: 05/05/19 10:01 Last Admin: 05/02/19 10:13 Dose: 166.7 mls/hr Tobramycin/Dexamethasone (Tobradex Opht Susp) 0 ml OU TID THU Last Admin: 05/02/19 09:35 Dose: 1 drop - Labs Labs: 05/02/19 06:47 05/02/19 06:47 PT 11.4 SECONDS (9.7-12.2) 04/28/19 16:55 INR 1.0 04/28/19 16:55 APTT 28.5 SECONDS (21-34) 04/28/19 16:55 Attending/Attestation - Attestation I have personally seen and examined this patient.: Yes I have fully participated in the care of the patient.: Yes I have reviewed all pertinent clinical information, including history, physical exam and plan: Yes Notes (Text): 05/02/19 11:17 Examined patient and reviewed residents note and plan of care. Agree with elsie slade and plan.
[2019-05-01] MEDS: Tobramycin/Dexamethasone (Tobradex) Opth Sol (2.5 ml) OU SCH ×3 (09:43→17:21)
[2019-05-01] MEDS: Vancomycin 1 gm/NS 200 ml 1 GM/200 ML BAG IVPB SCH ×2 (09:48→22:47)
[2019-05-01 10:55] LABS: HEMOGLOBIN 14.2 g/dL (12.0-18.0); MEAN CELL VOLUME 74.3 fL (80.0-94.0); MEAN CORPUSCULAR HGB CONC 33.7 g/dL (33.0-37.0); MEAN PLATELET VOLUME 8.4 fL (7.2-11.7); RBC 5.69 Mil/uL (4.40-5.90); RED CELL DISTRIBUTION WIDTH 16.5 % (11.5-14.5); WHITE BLOOD COUNT 7.9 K/uL (4.8-10.8)
[2019-05-01 11:10] LABS: ALB/GLOB RATIO 1.4 (1.0-2.1); ALBUMIN 4.2 g/dL (3.5-5.0); ALT/SGPT 23 U/L (21-72); AST/SGOT 20 U/L (17-59); BLOOD UREA NITROGEN 13 mg/dL (9-20); CALCIUM 9.5 mg/dl (8.6-10.4); GFR NON-AFRICAN AMERICAN > 60
--- NOTE | 2019-05-01 12:10 | CP.PCM.PN ---
Subjective - Date & Time of Evaluation Date of Evaluation: 05/01/19 Time of Evaluation: 07:00 - Subjective Subjective: Podiatry Progress Note- Dr. Santana 58 year old male seen and examined with attending Dr. Santana at bedside for left foot nonhealing wound with infection s/p 6 weeks surgery, r/o OM. Patient seen resting comfortably in bed, in NAD. Patient denies acute overnight events. Denies N/V/SOB/CP/Chills or F. Reports no issues with ambulating. Patient could not get the ceretec performed yesterday. Will try again today. Objective - Vital Signs/Intake and Output Vital Signs (last 24 hours): Temp Pulse Resp BP Pulse Ox 98.1 F 77 20 147/88 96 05/01/19 08:39 05/01/19 08:39 05/01/19 08:39 05/01/19 08:39 05/01/19 08:39 Intake and Output: 05/01/19 05/01/19 06:59 18:59 Intake Total 1200 Balance 1200 - Medications Medications: Current Medications Acetaminophen (Tylenol 325mg Tab) 650 mg PO Q6 PRN PRN Reason: Pain, moderate (4-7) Heparin Sodium (Porcine) (Heparin) 5,000 units SC Q12 THU Last Admin: 05/01/19 09:42 Dose: 5,000 units Heparin Sodium (Porcine) (Heparin (For Dialysis)) 1,000 units IVP ONCE HTU Heparin Sodium (Porcine) (Heparin (For Dialysis)) 1,000 units IV ONCE THU Piperacillin Sod/Tazobactam Sod (Zosyn 3.375 Gm Iv Premix) 3.375 gm in 50 mls @ 100 mls/hr IVPB Q6H THU; Protocol Last Admin: 05/01/19 10:27 Dose: 100 mls/hr Vancomycin/Sodium Chloride (Vancomycin 1 Gm/Ns 200 Ml) 1 gm in 200 mls @ 166.7 mls/hr IVPB Q12H THU; Protocol Stop: 05/05/19 10:01 Last Admin: 05/01/19 09:48 Dose: 166.7 mls/hr Tobramycin/Dexamethasone (Tobradex Opht Susp) 0 ml OU TID THU Last Admin: 05/01/19 09:43 Dose: 1 drop - Labs Labs: 05/01/19 10:44 05/01/19 10:44 PT 11.4 SECONDS (9.7-12.2) 04/28/19 16:55 INR 1.0 04/28/19 16:55 APTT 28.5 SECONDS (21-34) 04/28/19 16:55 - Constitutional Appears: Well, Non-toxic, No Acute Distress - Extremities Exam Extremities Exam: absent: Calf Tenderness Additional comments: VASC: DP and PT 2/4 bilaterally, CFT < 3 seconds x 10 digits, temperature left warm to warm, right warm to cool, mild edema noted to the left foot ORTHO: MM is 5/5 in all four compartments, able to wiggle digits, no calf pain or tenderness, slightly weaken dorsiflexion of the hallux NEURO: gross and protective sensation intact DERM: healed surgical incision to 2nd and 3rd digit and open wound noted to the dorsum medial aspect of left foot measuring approximately 2 x 5 cm x .2 cm with wound base mixture of fibrotic and granular tissue, slight clear yellow synovial drainage, no streaking cellulitis noted, no hardware exposed, no probe to bone - Neurological Exam Neurological Exam: Alert, Awake, Oriented x3 - Psychiatric Exam Psychiatric exam: Normal Affect, Normal Mood Assessment and Plan - Assessment and Plan (Free Text) Assessment: 58 M with no PMH s/p 6 weeks left bunionectomy and 2nd and 3rd metatarsal osteotomy with internal fixation with nonhealing infected wound, r/o OM Plan: Patient seen and examined Discussed plan in detail with attending Dr. Santana X-rays reviewed post surgical changes vs bony changes secondary to underlying infection read by me ESR 2 CRP 5.80 Wound culture left foot coagulase Neg Staphylococcus 04/28/19 ID consulted- Dr. Abdul Discussed with Dr. Abdul Ceretec scan ordered to r/o OM Please attempt Ceretec scan again, thank you Cleanse site with saline solution and dressed with xeroform, dsd, cling. Patient to go to the OR this weekend for debridement and application of graft vs wound VAC May need more aggressive surgery pending ceretec scan Please provide medical optimization for OR this weekend Thank you Will continue to follow patient while in house Patient may WBAT in surgical shoe
--- NOTE | 2019-05-01 12:33 | CP.PCM.PN ---
Subjective - Date & Time of Evaluation Date of Evaluation: 05/01/19 Time of Evaluation: 08:00 - Subjective Subjective: awaiting ceretec scan 'afebrile nad Objective - Vital Signs/Intake and Output Vital Signs (last 24 hours): Temp Pulse Resp BP Pulse Ox 98.1 F 77 20 147/88 96 05/01/19 08:39 05/01/19 08:39 05/01/19 08:39 05/01/19 08:39 05/01/19 08:39 Intake and Output: 05/01/19 05/01/19 06:59 18:59 Intake Total 1200 Balance 1200 - Medications Medications: Current Medications Acetaminophen (Tylenol 325mg Tab) 650 mg PO Q6 PRN PRN Reason: Pain, moderate (4-7) Heparin Sodium (Porcine) (Heparin) 5,000 units SC Q12 THU Last Admin: 05/01/19 09:42 Dose: 5,000 units Heparin Sodium (Porcine) (Heparin (For Dialysis)) 1,000 units IVP ONCE THU Heparin Sodium (Porcine) (Heparin (For Dialysis)) 1,000 units IV ONCE THU Piperacillin Sod/Tazobactam Sod (Zosyn 3.375 Gm Iv Premix) 3.375 gm in 50 mls @ 100 mls/hr IVPB Q6H THU; Protocol Last Admin: 05/01/19 10:27 Dose: 100 mls/hr Vancomycin/Sodium Chloride (Vancomycin 1 Gm/Ns 200 Ml) 1 gm in 200 mls @ 166.7 mls/hr IVPB Q12H THU; Protocol Stop: 05/05/19 10:01 Last Admin: 05/01/19 09:48 Dose: 166.7 mls/hr Tobramycin/Dexamethasone (Tobradex Opht Susp) 0 ml OU TID THU Last Admin: 05/01/19 09:43 Dose: 1 drop - Labs Labs: 05/01/19 10:44 05/01/19 10:44 PT 11.4 SECONDS (9.7-12.2) 04/28/19 16:55 INR 1.0 04/28/19 16:55 APTT 28.5 SECONDS (21-34) 04/28/19 16:55 - Constitutional Appears: Well - Head Exam Head Exam: ATRAUMATIC, NORMAL INSPECTION, NORMOCEPHALIC - Eye Exam Eye Exam: EOMI, Normal appearance, PERRL Pupil Exam: NORMAL ACCOMODATION, PERRL - ENT Exam ENT Exam: Mucous Membranes Moist, Normal Exam - Neck Exam Neck Exam: Full ROM, Normal Inspection. absent: Lymphadenopathy - Respiratory Exam Respiratory Exam: Clear to Ausculation Bilateral, NORMAL BREATHING PATTERN - Cardiovascular Exam Cardiovascular Exam: REGULAR RHYTHM, +S1, +S2. absent: Murmur - GI/Abdominal Exam GI & Abdominal Exam: Soft, Normal Bowel Sounds. absent: Tenderness - Rectal Exam Rectal Exam: Deferred - Exam External exam: Ecchymosis, Erythema, Lacerations, Lesions, NORMAL EXTERNAL EXAM, Swelling Speculum exam: Cervical Discharge, Erythema, Foreign Body, Laceration, NORMAL SPECULUM EXAM, Tissue, Vaginal Bleeding, Vaginal Discharge - Extremities Exam Extremities Exam: Full ROM, Normal Capillary Refill, Normal Inspection. absent: Joint Swelling, Pedal Edema - Back Exam Back Exam: NORMAL INSPECTION - Neurological Exam Neurological Exam: Alert, Awake, CN II-XII Intact, Normal Gait, Oriented x3 - Psychiatric Exam Psychiatric exam: Normal Affect, Normal Mood - Skin Skin Exam: Dry, Intact, Warm Additional comments: ulcer is dry no pus Assessment and Plan (1) Cellulitis Status: Acute (2) Foot ulcer Status: Acute - Assessment and Plan (Free Text) Assessment: for skin graft cont iv rx and wound care
[2019-05-01 13:58] LABS: BASO # 0.1 K/uL (0.0-0.2); EOS # 0.4 K/uL (0.0-0.7); LYMPH # 3.4 K/uL (1.0-4.3); MONO # 1.4 K/uL (0.0-0.8); NEUT # 2.7 K/uL (1.8-7.0)
[2019-05-02] MEDS: Piperacill/Tazo 3.375gm in Dex 3.375 GM/50 ML BAG IVPB SCH ×4 (05:28→23:29)
[2019-05-02 07:11] LABS: BASO # 0.1 K/uL (0.0-0.2); BASO % 0.7 % (0.0-2.0); EOS # 0.3 K/uL (0.0-0.7); EOS % 4.3 % (0.0-4.0); HEMOGLOBIN 14.1 g/dL (12.0-18.0); LYMPH % 43.1 % (20.0-40.0); MEAN CELL VOLUME 74.9 fL (80.0-94.0); MEAN CORPUSCULAR HEMOGLOBIN 24.6 pg (27.0-31.0); MEAN CORPUSCULAR HGB CONC 32.8 g/dL (33.0-37.0); MEAN PLATELET VOLUME 8.9 fL (7.2-11.7); MONO # 0.9 K/uL (0.0-0.8); MONO % 13.1 % (0.0-10.0); NEUT # 2.7 K/uL (1.8-7.0); NEUT % 38.8 % (50.0-75.0); NRBC % 0.2 % (0.0-2.0); RBC 5.72 Mil/uL (4.40-5.90); RED CELL DISTRIBUTION WIDTH 16.7 % (11.5-14.5); WHITE BLOOD COUNT 6.9 K/uL (4.8-10.8)
[2019-05-02 07:16] LABS: ALB/GLOB RATIO 1.4 (1.0-2.1); ALBUMIN 4.2 g/dL (3.5-5.0); ALT/SGPT 28 U/L (21-72); AST/SGOT 19 U/L (17-59); BLOOD UREA NITROGEN 14 mg/dL (9-20); CALCIUM 9.5 mg/dl (8.6-10.4); GFR NON-AFRICAN AMERICAN > 60
--- NOTE | 2019-05-02 08:41 | CP.PCM.PN ---
Subjective - Date & Time of Evaluation Date of Evaluation: 05/02/19 Time of Evaluation: 08:40 - Subjective Subjective: PGY1 medicine progress note for Dr. Sharp Patient S&E. Pt understands that he will be going to OR for debridement of his wound today. Pt denies fever, chills, chest pain, sob, abdominla pain, n/v/d, acute left foot pain, headache, dizziness, lightheadedness, visual changes. Objective - Vital Signs/Intake and Output Vital Signs (last 24 hours): Temp Pulse Resp BP Pulse Ox 98.0 F 52 L 20 124/74 96 05/02/19 08:00 05/02/19 08:00 05/02/19 08:00 05/02/19 08:00 05/02/19 08:00 Intake and Output: 05/02/19 05/02/19 06:59 18:59 Intake Total 120 Balance 120 - Medications Medications: Current Medications Acetaminophen (Tylenol 325mg Tab) 650 mg PO Q6 PRN PRN Reason: Pain, moderate (4-7) Heparin Sodium (Porcine) (Heparin) 5,000 units SC Q12 THU Last Admin: 05/01/19 09:42 Dose: 5,000 units Heparin Sodium (Porcine) (Heparin (For Dialysis)) 1,000 units IVP ONCE THU Heparin Sodium (Porcine) (Heparin (For Dialysis)) 1,000 units IV ONCE THU Piperacillin Sod/Tazobactam Sod (Zosyn 3.375 Gm Iv Premix) 3.375 gm in 50 mls @ 100 mls/hr IVPB Q6H THU; Protocol Last Admin: 05/02/19 05:28 Dose: 100 mls/hr Vancomycin/Sodium Chloride (Vancomycin 1 Gm/Ns 200 Ml) 1 gm in 200 mls @ 166.7 mls/hr IVPB Q12H THU; Protocol Stop: 05/05/19 10:01 Last Admin: 05/01/19 22:47 Dose: 166.7 mls/hr Tobramycin/Dexamethasone (Tobradex Opht Susp) 0 ml OU TID THU Last Admin: 05/01/19 17:21 Dose: 1 drop - Labs Labs: 05/02/19 06:47 05/02/19 06:47 PT 11.4 SECONDS (9.7-12.2) 04/28/19 16:55 INR 1.0 04/28/19 16:55 APTT 28.5 SECONDS (21-34) 04/28/19 16:55 - Additional Findings Additional findings: - Constitutional Appears: Well, No Acute Distress - Head Exam Head Exam: ATRAUMATIC, NORMOCEPHALIC - Eye Exam Eye Exam: EOMI - ENT Exam ENT Exam: Mucous Membranes Moist - Neck Exam Neck Exam: Full ROM, Normal Inspection - Respiratory Exam Respiratory Exam: Clear to Ausculation Bilateral, NORMAL BREATHING PATTERN. absent: Rales, Rhonchi, Wheezes - Cardiovascular Exam Cardiovascular Exam: REGULAR RHYTHM, +S1, +S2 - GI/Abdominal Exam GI & Abdominal Exam: Soft, Normal Bowel Sounds. absent: Distended, Firm, Guarding, Rigid, Tenderness - Extremities Exam Extremities Exam: Full ROM. absent: Pedal Edema, Tenderness Additional comments: L foot dressing c/d/i. Left toes normal cap refill, sensation intact, warm. 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 Diffuse soft tissue swelling in the foot could represent cellulitis. 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 Ceretic scan completed. To be taken to OR by podiatry for wound debridement today. Revised cardiac risk index Class 1: 3.9% 30 day risk of , [place] or cardiac arrest. Patient is low risk for cardiac event under anesthesia. Patient is medically optimized for surgery. Surgical team and anesthesia team to discuss risks and benefits of surgery. Further management as per Dr. Aron North PGY1
[2019-05-02] MEDS: Tobramycin/Dexamethasone (Tobradex) Opth Sol (2.5 ml) OU SCH ×3 (09:35→17:12)
[2019-05-02] MEDS: Vancomycin 1 gm/NS 200 ml 1 GM/200 ML BAG IVPB SCH ×2 (10:13→21:21)
--- NOTE | 2019-05-02 10:15 | CP.PCM.PN ---
Subjective - Date & Time of Evaluation Date of Evaluation: 05/02/19 Time of Evaluation: 09:00 - Subjective Subjective: Podiatry Progress Note- Dr. Santana 58 year old male seen and examined for left foot nonhealing wound with infection s/p 6 weeks surgery, r/o OM. Patient seen resting comfortably in bed, in NAD. Patient denies acute overnight events. Denies N/V/SOB/CP/Chills or F. Patient understands that he will be going to the OR today at 12pm with Dr. Santana for wound debridement with possible application of graft/wound VAC and bone biopsy. Patient reports no pain to lower extremity. NPO status confirmed. Dressing clean dry and intact. Objective - Vital Signs/Intake and Output Vital Signs (last 24 hours): Temp Pulse Resp BP Pulse Ox 98.0 F 52 L 20 124/74 96 05/02/19 08:00 05/02/19 08:00 05/02/19 08:00 05/02/19 08:00 05/02/19 08:00 Intake and Output: 05/02/19 05/02/19 06:59 18:59 Intake Total 120 Balance 120 - Medications Medications: Current Medications Acetaminophen (Tylenol 325mg Tab) 650 mg PO Q6 PRN PRN Reason: Pain, moderate (4-7) Heparin Sodium (Porcine) (Heparin) 5,000 units SC Q12 THU Last Admin: 05/01/19 09:42 Dose: 5,000 units Heparin Sodium (Porcine) (Heparin (For Dialysis)) 1,000 units IVP ONCE THU Heparin Sodium (Porcine) (Heparin (For Dialysis)) 1,000 units IV ONCE THU Piperacillin Sod/Tazobactam Sod (Zosyn 3.375 Gm Iv Premix) 3.375 gm in 50 mls @ 100 mls/hr IVPB Q6H THU; Protocol Last Admin: 05/02/19 05:28 Dose: 100 mls/hr Vancomycin/Sodium Chloride (Vancomycin 1 Gm/Ns 200 Ml) 1 gm in 200 mls @ 166.7 mls/hr IVPB Q12H THU; Protocol Stop: 05/05/19 10:01 Last Admin: 05/01/19 22:47 Dose: 166.7 mls/hr Tobramycin/Dexamethasone (Tobradex Opht Susp) 0 ml OU TID THU Last Admin: 05/02/19 09:35 Dose: 1 drop - Labs Labs: 05/02/19 06:47 05/02/19 06:47 PT 11.4 SECONDS (9.7-12.2) 04/28/19 16:55 INR 1.0 04/28/19 16:55 APTT 28.5 SECONDS (21-34) 04/28/19 16:55 - Constitutional Appears: Well, Non-toxic, No Acute Distress - Extremities Exam Extremities Exam: absent: Calf Tenderness Additional comments: VASC: DP and PT 2/4 bilaterally, CFT < 3 seconds x 10 digits, temperature left warm to warm, right warm to cool, mild edema noted to the left foot ORTHO: MM is 5/5 in all four compartments, able to wiggle digits, no calf pain or tenderness, slightly weaken dorsiflexion of the hallux NEURO: gross and protective sensation intact DERM: healed surgical incision to 2nd and 3rd digit and open wound noted to the dorsum medial aspect of left foot measuring approximately 2 x 5 cm x .2 cm with wound base mixture of fibrotic and granular tissue, slight clear yellow synovial drainage, no streaking cellulitis noted, no hardware exposed, no probe to bone - Neurological Exam Neurological Exam: Alert, Awake, Oriented x3 - Psychiatric Exam Psychiatric exam: Normal Affect, Normal Mood Assessment and Plan - Assessment and Plan (Free Text) Assessment: 58 M with no PMH s/p 6 weeks left bunionectomy and 2nd and 3rd metatarsal osteotomy with internal fixation with nonhealing infected wound, r/o OM Plan: Patient seen and examined Discussed plan in detail with attending Dr. Santana X-rays reviewed post surgical changes vs bony changes secondary to underlying infection read by me ESR 2 CRP 5.80 Wound culture left foot coagulase Neg Staphylococcus 04/28/19 ID consulted- Dr. Abdul Discussed with Dr. Franko Gomez scan -pending Medical optimization obtained. Thank you Will go to the OR today at 12 PM for debridement and application of graft with possible wound VAC or bone biopsy All risk, benefits, complications, and alternatives explained to the patient about surgical procedure. Patient understands and is agreeable NPO status confirmed Will continue to follow patient while in house Patient may WBAT in surgical shoe
--- NOTE | 2019-05-02 12:04 | NM ---
Date of service: 05/01/2019 PROCEDURE: Ceretec labeled white blood cell study HISTORY: r/o OM of left foot s/p surgical procedure COMPARISON: None TECHNIQUE: 10.6 mCi technetium 99 M Ceretec labeled white blood cell administered intravenously. Images obtained at 3 and 18 hr per institutional protocol. Particular attention directed to the left foot. The patient is approximately 1 month status post surgical procedure currently on antibiotics. FINDINGS: No Ceretec avid structures identified in the visible lower extremities. Imaging performed from the pelvis to the feet. IMPRESSION: Negative Ceretec labeled white blood cell study.
[2019-05-02] MEDS ORDERED: HYDROmorphone 0.5 mg/0.5 ml ISec IVP PRN (12:05)
[2019-05-02] MEDS ORDERED: Lidocaine Hydrochloride 10 ML INJ ONE (12:57)
[2019-05-02] MEDS ORDERED: Bupivacaine HCl 0.5% PF (10 ml) Inj ONE (12:57)
--- NOTE | 2019-05-02 14:00 | PCM.SURG1 ---
Surgeon's Initial Post Op Note - Surgeon's Notes Surgeon: Dr. Santana DPM Special Assets Officer: Dr. Shaggy Sweet PGY-2 DPM Type of Anesthesia: IV Sedation, Local Anesthesia Administered By: Dr. Landa Pre-Operative Diagnosis: 1. nonhealing ulceration of left foot Operative Findings: see dictation Post-Operative Diagnosis: same Operation Performed: 1. debridement of nonhealing ulceration with debridement of all nonviable soft tissue and bone. 2. application of Integra Graft 5 x 5. injectables: 10 cc of 1:1 mixture of 0.5% marcaine plain and 1% lidocaine plain. materials: Integra graft, 4-0 vicryl Specimen/Specimens Removed: none Estimated Blood Loss: EBL {In ML}: 5 Blood Products Given: N/A Drains Used: No Drains Post-Op Condition: Good Date of Surgery/Procedure: 05/02/19 Time of Surgery/Procedure: 13:00
[2019-05-03] MEDS: Piperacill/Tazo 3.375gm in Dex 3.375 GM/50 ML BAG IVPB SCH ×2 (05:15→11:04)
[2019-05-03 07:56] LABS: BASO % 0.5 % (0.0-2.0); EOS # 0.3 K/uL (0.0-0.7); EOS % 4.5 % (0.0-4.0); HEMOGLOBIN 13.5 g/dL (12.0-18.0); LYMPH # 2.9 K/uL (1.0-4.3); LYMPH % 45.5 % (20.0-40.0); MEAN CORPUSCULAR HEMOGLOBIN 24.7 pg (27.0-31.0); MEAN CORPUSCULAR HGB CONC 32.9 g/dL (33.0-37.0); MEAN PLATELET VOLUME 8.9 fL (7.2-11.7); MONO # 0.8 K/uL (0.0-0.8); MONO % 12.2 % (0.0-10.0); NEUT # 2.4 K/uL (1.8-7.0); NEUT % 37.3 % (50.0-75.0); NRBC % 0.1 % (0.0-2.0); RBC 5.47 Mil/uL (4.40-5.90); RED CELL DISTRIBUTION WIDTH 16.6 % (11.5-14.5); WHITE BLOOD COUNT 6.4 K/uL (4.8-10.8)
[2019-05-03 08:54] VITALS: BP 170/90; PULSE 70; RESP 20; TEMP 98.6; O2SAT 97
[2019-05-03 09:01] LABS: ALB/GLOB RATIO 1.4 (1.0-2.1); ALBUMIN 3.9 g/dL (3.5-5.0); ALT/SGPT 27 U/L (21-72); AST/SGOT 19 U/L (17-59); BLOOD UREA NITROGEN 16 mg/dL (9-20); GFR NON-AFRICAN AMERICAN > 60
--- NOTE | 2019-05-03 09:05 | CP.PCM.PN ---
Objective - Vital Signs/Intake and Output Vital Signs (last 24 hours): Temp Pulse Resp BP Pulse Ox 98.6 F 70 20 170/90 H 97 05/03/19 08:00 05/03/19 08:00 05/03/19 08:00 05/03/19 08:00 05/03/19 08:00 Intake and Output: 05/03/19 05/03/19 06:59 18:59 Intake Total 1130 Balance 1130 - Medications Medications: Current Medications Acetaminophen (Tylenol 325mg Tab) 650 mg PO Q6 PRN PRN Reason: Pain, moderate (4-7) Last Admin: 05/03/19 01:30 Dose: 650 mg Heparin Sodium (Porcine) (Heparin) 5,000 units SC Q12 THU Last Admin: 05/01/19 09:42 Dose: 5,000 units Heparin Sodium (Porcine) (Heparin (For Dialysis)) 1,000 units IVP ONCE THU Heparin Sodium (Porcine) (Heparin (For Dialysis)) 1,000 units IV ONCE THU Piperacillin Sod/Tazobactam Sod (Zosyn 3.375 Gm Iv Premix) 3.375 gm in 50 mls @ 100 mls/hr IVPB Q6H THU; Protocol Last Admin: 05/03/19 05:15 Dose: 100 mls/hr Vancomycin/Sodium Chloride (Vancomycin 1 Gm/Ns 200 Ml) 1 gm in 200 mls @ 166.7 mls/hr IVPB Q12H THU; Protocol Stop: 05/05/19 10:01 Last Admin: 05/02/19 21:21 Dose: 166.7 mls/hr Tobramycin/Dexamethasone (Tobradex Opht Susp) 0 ml OU TID THU Last Admin: 05/02/19 17:12 Dose: 1 drop - Labs Labs: 05/03/19 07:40 05/03/19 07:40 PT 11.4 SECONDS (9.7-12.2) 04/28/19 16:55 INR 1.0 04/28/19 16:55 APTT 28.5 SECONDS (21-34) 04/28/19 16:55
[2019-05-03] MEDS ORDERED: Lactobacillus Acidophilus 500 MU Cap PO SCH (10:00)
--- NOTE | 2019-05-03 10:42 | CP.PCM.DIS ---
Provider - Provider Date of Admission: 04/28/19 17:15 Attending physician: Patrcik Sharp Jr, MD Consults: 04/28/19 18:28 Infectious Disease Consult Routine Comment: infected left nonhealing wound, r/o OM Consulting Provider: Kj Abdul Consulting Physician: Kj Abdul Reason for Consult: infected left nonhealing wound, r/o OM 04/28/19 21:03 Nursing Referral for Wound Care Routine Comment: Physician Instructions: Reason For Exam: new pt . l ft. ulcer post operation couple weeks a 04/29/19 07:00 Podiatry Consult Routine Comment: Consulting Provider: Sotero Santana Consulting Physician: Sotero Santana Reason for Consult: nonhealinb ulcer, sent in by you Time Spent in preparation of Discharge (in minutes): 35 Diagnosis - Discharge Diagnosis (1) Cellulitis Status: Acute (2) Foot ulcer Status: Acute Hospital Course - Lab Results Lab Results: Micro Results 04/28/19 17:42 Blood Blood Culture - Preliminary NO GROWTH AFTER 4 DAYS 04/28/19 16:55 Blood Blood Culture - Preliminary NO GROWTH AFTER 4 DAYS 04/29/19 17:36 Urine,Clean Catch Urine Culture - Final No Growth (<1,000 CFU/ML) 04/28/19 17:14 Foot - Left Gram Stain - Final 04/28/19 17:14 Foot - Left Wound Culture - Final Coagulase Neg Staphylococcus Most Recent Lab Values WBC 6.4 K/uL (4.8-10.8) 05/03/19 07:40 RBC 5.47 Mil/uL (4.40-5.90) 05/03/19 07:40 Hgb 13.5 g/dL (12.0-18.0) 05/03/19 07:40 Hct 41.0 % (35.0-51.0) 05/03/19 07:40 MCV 75.0 fL (80.0-94.0) L 05/03/19 07:40 MCH 24.7 pg (27.0-31.0) L 05/03/19 07:40 MCHC 32.9 g/dL (33.0-37.0) L 05/03/19 07:40 RDW 16.6 % (11.5-14.5) H 05/03/19 07:40 Plt Count 258 K/uL (130-400) 05/03/19 07:40 MPV 8.9 fL (7.2-11.7) 05/03/19 07:40 Neut % (Auto) 37.3 % (50.0-75.0) L 05/03/19 07:40 Lymph % (Auto) 45.5 % (20.0-40.0) H 05/03/19 07:40 [place] % (Auto) 12.2 % (0.0-10.0) H 05/03/19 07:40 Eos % (Auto) 4.5 % (0.0-4.0) H 05/03/19 07:40 Baso % (Auto) 0.5 % (0.0-2.0) 05/03/19 07:40 Neut # (Auto) 2.4 K/uL (1.8-7.0) 05/03/19 07:40 Lymph # (Auto) 2.9 K/uL (1.0-4.3) 05/03/19 07:40 [place] # (Auto) 0.8 K/uL (0.0-0.8) 05/03/19 07:40 Eos # (Auto) 0.3 K/uL (0.0-0.7) 05/03/19 07:40 Baso # (Auto) 0.0 K/uL (0.0-0.2) 05/03/19 07:40 ESR 2 mm/hr (0-15) 04/29/19 08:37 PT 11.4 SECONDS (9.7-12.2) 04/28/19 16:55 INR 1.0 04/28/19 16:55 APTT 28.5 SECONDS (21-34) 04/28/19 16:55 Sodium 136 mmol/L (132-148) 05/03/19 07:40 Potassium 4.5 mmol/L (3.6-5.2) 05/03/19 07:40 Chloride 107 mmol/L (98-107) 05/03/19 07:40 Carbon Dioxide 22 mmol/L (22-30) 05/03/19 07:40 Anion Gap 12 (10-20) 05/03/19 07:40 BUN 16 mg/dL (9-20) 05/03/19 07:40 Creatinine 1.1 mg/dL (0.8-1.5) 05/03/19 07:40 Est GFR ( Amer) > 60 05/03/19 07:40 Est GFR (Non-Af Amer) > 60 05/03/19 07:40 Random Glucose 91 mg/dL (75-110) 05/03/19 07:40 Hemoglobin A1c 5.8 % (4.2-6.5) 04/29/19 08:37 Calcium 9.0 mg/dl (8.6-10.4) 05/03/19 07:40 Phosphorus 3.7 mg/dL (2.5-4.5) 05/03/19 07:40 Magnesium 2.0 mg/dL (1.6-2.3) 05/03/19 07:40 Total Bilirubin 0.5 mg/dL (0.2-1.3) 05/03/19 07:40 AST 19 U/L (17-59) 05/03/19 07:40 ALT 27 U/L (21-72) 05/03/19 07:40 Alkaline Phosphatase 52 U/L (38-126) 05/03/19 07:40 C-Reactive Protein 5.80 mg/L (0.0-9.9) 04/29/19 08:37 Total Protein 6.7 g/dL (6.3-8.3) 05/03/19 07:40 Albumin 3.9 g/dL (3.5-5.0) 05/03/19 07:40 Globulin 2.8 gm/dL (2.2-3.9) 05/03/19 07:40 Albumin/Globulin Ratio 1.4 (1.0-2.1) 05/03/19 07:40 Triglycerides 110 mg/dL (0-149) 04/29/19 08:37 Cholesterol 191 mg/dL (0-199) 04/29/19 08:37 LDL Cholesterol Direct 94 mg/dL (0-129) 04/29/19 08:37 HDL Cholesterol 70 mg/dL (30-70) 04/29/19 08:37 Urine Color Straw (YELLOW) 04/29/19 17:36 Urine Clarity Clear (Clear) 04/29/19 17:36 Urine pH 6.0 (5.0-8.0) 04/29/19 17:36 Ur Specific [place] 1.005 (1.003-1.030) 04/29/19 17:36 Urine Protein Negative mg/dL (NEGATIVE) 04/29/19 17:36 Urine Glucose (UA) Normal mg/dL (Normal) 04/29/19 17:36 Urine Ketones Negative mg/dL (NEGATIVE) 04/29/19 17:36 Urine Blood Trace (NEGATIVE) H 04/29/19 17:36 Urine Nitrate Negative (NEGATIVE) 04/29/19 17:36 Urine Bilirubin Negative (NEGATIVE) 04/29/19 17:36 Urine Urobilinogen Normal mg/dL (0.2-1.0) 04/29/19 17:36 Ur Leukocyte Esterase Neg Tu/uL (Negative) 04/29/19 17:36 Urine WBC (Auto) < 1 /hpf (0-5) 04/29/19 17:36 Vancomycin Trough 9.3 ug/mL (5.0-10.0) 05/02/19 06:47 - Hospital Course Hospital Course: On admission: This is a 58 year old male with no significant PMH, who was sent to the ED by his [employer] due to nonhealing ulcer s/p foot surgery at [facility] approximately 6 weeks ago. As per pt and podiatry resident, patient had a history of dislocated 2nd digit which fused and became painful. Pt underwent surgical incision to the 2nd and 3rd metatarsal, which healed. But the bunionectomy incision did not heal. He reports continued to follow up with Dr. Santana in which he continued to manage his wound. Patient reports he was given Augmentin which did not really help the wound. Wound culture was taken in the office and showed Staph epidermis treated with Ciprofloxacin. Denies fever, chills, chest pain, sob, abdominal pain, numbness or tingling. Endorses pain on the left foot only when bearing weight, but has been ambulating in surgical shoe without assistive device. Hospital course: Started on broad spectrum antibiotics. Left foot XR shows no radiographic evidence of OM. Diffuse soft tissue swelling in the foot could represent cellulitis. 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 Podiatry, Dr. Santana, consulted. ID, Dr. Abdul consulted. ESR and CRP normal. Pt underwent surgical debridement in the OR with Integra Graft. The procedure was well tolerated. Pt to be discharged home with Prescription for Linezolid for 7 days as per ID. This is a summary of the hospital course. Please see EMR for full details. Discharge Exam - Additional Findings Additional findings: - Constitutional Appears: Well, No Acute Distress - Head Exam Head Exam: ATRAUMATIC, NORMOCEPHALIC - Eye Exam Eye Exam: EOMI - ENT Exam ENT Exam: Mucous Membranes Moist - Neck Exam Neck Exam: Full ROM, Normal Inspection - Respiratory Exam Respiratory Exam: Clear to Ausculation Bilateral, NORMAL BREATHING PATTERN. absent: Rales, Rhonchi, Wheezes - Cardiovascular Exam Cardiovascular Exam: REGULAR RHYTHM, +S1, +S2 - GI/Abdominal Exam GI & Abdominal Exam: Soft, Normal Bowel Sounds. absent: Distended, Firm, Guarding, Rigid, Tenderness - Extremities Exam Extremities Exam: Full ROM. absent: Pedal Edema, Tenderness Additional comments: L foot dressing c/d/i. Left toes normal cap refill, sensation intact, warm. Nontender. Surgical boot. - Neurological Exam Neurological Exam: Alert, Awake, Oriented x3 - Psychiatric Exam Psychiatric exam: Normal Affect, Normal Mood - Skin Skin Exam: Dry, Normal Color, Warm Discharge Plan - Discharge Medications Prescriptions: Lactobacillus Acidophilus [Lactobacillus] 1 cap PO BID #60 cap Linezolid [Zyvox] 600 mg PO BID #14 tab - Follow Up Plan Condition: STABLE Disposition: HOME/ ROUTINE Instructions: Diabetic Foot Ulcer (DC), Lactobacillus, Linezolid, Cellulitis (DC), Cellulitis (GEN) Additional Instructions: Pt is medically stable for discharge as per Dr. Sharp. Prescriptions provided: Linezolid 600 mg one tab by mouth twice daily, 8 amd and 8 pm. #14 Lactobacillus 1 tab by mouth twice daily, 11 am and 5 pm. Please follow up with Dr. Santana in 1 week, as scheduled by podiatry. Please do not bear weight on your foot for at least 1 week, please use the crutches as directed. Should symptoms worsen, please see EMR for full details. Instructions explained to the pt, who understands and agrees with discharge plan. Referrals: Sotero Santana, VIRGILIO [Staff Provider] -
[2019-05-03] MEDS: Vancomycin 1 gm/NS 200 ml 1 GM/200 ML BAG IVPB SCH ×2 (11:01→11:04)
[2019-05-03] MEDS: Tobramycin/Dexamethasone (Tobradex) Opth Sol (2.5 ml) OU SCH (11:02)
--- NOTE | 2019-05-03 14:07 | CP.PCM.PN ---
Subjective - Date & Time of Evaluation Date of Evaluation: 05/03/19 Time of Evaluation: 10:00 - Subjective Subjective: Podiatry Progress Note- Dr. Santana 58 year old male seen and examined POD #1 1. debridement of nonhealing ulceration with debridement of all nonviable soft tissue and bone. 2. application of Integra Graft 5 x 5 secondary to left foot nonhealing wound with infection s/p 6 weeks surgery. Patient ceretec scan shows no OM thus decision was made not to go with bone biopsy during surgery. Patient seen resting comfortably in bed, in NAD. Patient denies acute overnight events. Denies N/V/SOB/CP/Chills or F. Patient reports pain is well managed with pain medication. Reports understanding of NWB to the left foot with surgical shoe. No other pedal complaints. Objective - Vital Signs/Intake and Output Vital Signs (last 24 hours): Temp Pulse Resp BP Pulse Ox 98.6 F 70 20 170/90 H 97 05/03/19 08:00 05/03/19 08:00 05/03/19 08:00 05/03/19 08:00 05/03/19 11:56 Intake and Output: 05/03/19 05/03/19 06:59 18:59 Intake Total 1130 Balance 1130 - Labs Labs: 05/03/19 07:40 05/03/19 07:40 PT 11.4 SECONDS (9.7-12.2) 04/28/19 16:55 INR 1.0 04/28/19 16:55 APTT 28.5 SECONDS (21-34) 04/28/19 16:55 - Constitutional Appears: Well, Non-toxic, No Acute Distress - Extremities Exam Extremities Exam: absent: Calf Tenderness Additional comments: Dressing clean, dry and intact No strikethrough Temperature WNL CFT < 3 seconds Able to wiggle toes Assessment and Plan - Assessment and Plan (Free Text) Assessment: 58 year old male seen and examined POD #1 1. debridement of nonhealing ulceration with debridement of all nonviable soft tissue and bone. 2. application of Integra Graft 5 x 5 secondary to left foot nonhealing wound with infection s/p 6 weeks bunion surgery. Plan: Chart, labs vitals reviewed Discussed plan with Dr. Santana Reviewed Ceretec scan- no osteomyelitis Patient s/p debridement of left foot nonhealing wound of all nonviable soft tissue and bone via Versajet with application of Integra graft Patient is stable for discharge per podiatry standpoint Dressing to be clean dry and intact. Do not change. Do not get wet Patient to remain NWB to the left lower extremity with crutches with surgical shoe F/U with ID recommendations prior to d/c Spoke to Dr. Abdul, is recommending PO Zyvox 7-10 days RICE protocol NWB with crutches in surgical shoe Dressing keep clean, dry, intact Instructions on worsening signs of infection: to seek help immediately if present OTC pain medication prn pain F/U with Dr. Santana in office on Saturday
--- NOTE | 2019-05-03 15:04 | CP.PCM.PCO ---
Physician Communication Note - Physician Communication Note Physician Communication Note: Pt attempted to fill prescription for Linezolid at [facility] in [employer] in [place].
--- NOTE | 2019-05-03 20:23 | OP ---
PROCEDURE DATE: 05/02/2019 SURGEON: Sotero Santana DPM INBOUND TELEMARKETER: Shaggy Sweet DPM PREOPERATIVE DIAGNOSIS: Nonhealing wound, dorsal aspect of first ray of left foot. POSTOPERATIVE DIAGNOSIS: Nonhealing wound, dorsal aspect of first ray of left foot. ANESTHESIA: IV sedation with local. PROCEDURES PERFORMED: 1. Wound debridement with Versajet wound debridement system. 2. Application of Integra wound graft to the dorsal aspect of first ray, left foot. SPECIMENS: None. FINDINGS AND INDICATIONS: The patient is approximately six weeks status post left foot surgery. At approximately the second week postop, the patient had a trauma to the left foot where a hammer was dropped on the left foot at the first ray incision site. The trauma disruption of the first ray incision site occurred and was managed on an outpatient basis with wound culture revealing Staph epidermidis. The patient was not completely responding to oral antibiotics, therefore hospital admission was obtained five days ago. Blood work was within normal limits with normal sed rate and CRP as well as no signs of osteomyelitis on x-ray imaging of left foot. Infectious disease consultation was obtained with Dr. Abdul, and hospital wound culture revealed coagulase-negative Staphylococcus. A Serate bone scan was performed and revealed no deep bone involvement. The patient was deemed ready for wound debridement and application of bone graft today. PROCEDURE #1: DEBRIDEMENT OF WOUND DORSAL FIRST RAY, LEFT FOOT: Attention was then directed to the left foot when after prepping and draping of the left foot was completed, inspection of the left foot dorsal first ray wound was performed. The wound was noted to be approximately 5 cm in length and 1.6 cm in width and 0.3 cm in depth. The periphery of the ulceration was noted to be granular with some central areas of fibrotic tissue. At this time, the wound margins were incised and freshened. The wound was then irrigated with copious amounts of sterile saline solution. At this time, utilizing a Versajet irrigation system at level 2, the wound was debrided and irrigated. The wound was noted to be clean with no signs of abscess or cellulitis. PROCEDURE #2: APPLICATION OF INTEGRA WOUND GRAFT TO DORSAL RAY WOUND, LEFT FOOT: Attention was then directed to the wound of the left foot, and measurements of the Integra graft were completed. The Integra graft was then applied to the wound site and sutured in place with a 4-0 Vicryl suture. Additional graft material in a flowable state was applied at the distal aspect of the wound beneath the Integra sheet. The graft was noted to be intact and well placed and was covered with a layered Xeroform gauze, and the Xeroform gauze was then covered with two saline gauze. The remaining bandage was then completed with application of a dry 4x4 gauze and Trey bandage and Coban wrap. The patient tolerated the procedure and anesthesia well and was transported to the PACU area with vital signs stable and neurovascular status intact. He will be followed overnight in the hospital and will be evaluated for discharge in the morning after Infectious Disease recommendations. Sotero Santana DPM
== END 2019-05-03 13:01 | disposition home or self-care (01) | DRG 904 ==
LOC: C.ER 14:24 → C.9E 17:15 → C.3T 19:32
PROVIDERS: ADMIT Internal Medicine; ATTEND Internal Medicine
PROC: 0HRNXK3 Replacement of Left Foot Skin with Nonautologous Tissue Substitute, Full Thickness, External Approach (ICD-10-PCS; principal; 2019-05-02 12:00)
DX: T81.31XA Disruption of external operation (surgical) wound, not elsewhere classified, initial encounter (principal); T81.49XA Infection following a procedure, other surgical site, initial encounter; L03.116 Cellulitis of left lower limb; L97.529 Non-pressure chronic ulcer of other part of left foot with unspecified severity; M19.072 Primary osteoarthritis, left ankle and foot; W20.8XXA Other cause of strike by thrown, projected or falling object, initial encounter; B95.8 Unspecified staphylococcus as the cause of diseases classified elsewhere